=== PATIENT | male | born 1955 | race Caucasian/White ===

== ENCOUNTER 2018-07-25 16:51 | Emergency (ER) | payer BC, SELFPAY ==
[2018-07-25 16:52] VITALS: BP 122/82; PULSE 94; RESP 16; TEMP 37.3; O2SAT 97; BMI 27.3
--- NOTE | 2018-07-25 17:01 | ED.RN ---
PT STATES HE HAS TINGLING DOWN THE AFFECTED LLE. THE LEFT THIGH IS PURPLE AND YELLOW BRUISED, LEFT KNEE IS SWOLLEN BUT NOT RED, PT IS ABLE TO BEND THE KNEE. PT HAS PULSES PRESENT, SENSATION INTACT, CAP REFILL LESS THAN 3 SEC IN THE LLE.
--- NOTE | 2018-07-25 17:09 | US_ITS ---
STUDY: VENOUS DOPPLER ULTRASOUND - LEFT LOWER EXTREMITY REASON FOR EXAM: Male, 62 years old. Swelling TECHNIQUE: Ultrasound evaluation of the deep vein system to include enrique-scale imaging and compression was performed. Enrique-scale imaging and Doppler sonographic evaluation, including duplex spectral analysis and qualitative color flow sonography, was performed. COMPARISON: None. FINDINGS: Common Femoral Vein: Normal compression, spontaneity and augmentation. Normal color Doppler. Common Femoral Vein/Greater Saphenous Junction: Normal compression. Femoral Proximal: Normal compression. Femoral Middle: Normal compression, spontaneity and augmentation. Normal color Doppler. Femoral Distal: Normal compression. Popliteal Vein: Normal compression, spontaneity and augmentation. Normal color Doppler. Posterior Tibial Vein: Normal compression. Peroneal Vein: Normal compression. US/Venous Duplex Imag/Limited/Uni IMPRESSION: Normal venous Doppler ultrasound of the lower extremity. Electronically Signed: Rudy Gupta, at 17:54 EDT Tel , Service support ,
--- NOTE | 2018-07-25 17:09 | ED.VISSUMM ---
- ER Visit Summary Date of Service: 07/25/18 Chief Complaint: Left lower extremity pain History of Present Illness: The patient is a 62 M presenting with left lower extremity pain. Patient states on he was cutting down a tree and a piece of wood came down and hit him in the left thigh. He has been able to ambulate since. He has bruising to the left lateral thigh. He complains of increasing swelling lower thigh today. He has a remote history of blood clots. He is not on anticoagulants. He denies chest pain or shortness of breath. Physical Examination: Vitals are stable. Patient is afebrile. Alert no acute distress. HEENT exam is unremarkable. Neck is supple. Lungs are clear and equal bilaterally. Heart is regular rate and rhythm. Extremities left lateral thigh ecchymosis and hematoma. Compartments soft. Active full range of motion. No erythema or warmth. Normal distal pulses. No calf tenderness. Skin is warm and dry. Remainder of exam is unremarkable. Emergency Department Course and Treatment: Left lower extremity venous Doppler shows no evidence of DVT. Left femur x-ray shows no acute process. Patient is advised to ice and elevate. Advised to follow-up with primary care physician. Advised return to ED for worsening complaints. Disposition: Discharge home Impression: Left lower extremity contusion This note was generated with nPicker dictation software. It may contain incorrect words, spelling, and punctuation that were not noted in review of the chart prior to signing ED Disposition - Plan for ED Patient: Instructions: ED Contusion Lower Ext Referrals: Roni Au MD [Primary Care Provider] -
--- NOTE | 2018-07-25 17:10 | RAD_ITS ---
STUDY: X-RAY - LEFT FEMUR REASON FOR STUDY: Male, 62 years old. Pain TECHNIQUE: 4 view(s) of the femur. COMPARISON: None. FINDINGS: Normal visualized femur. Normal visualized soft tissue structure. RAD/Femur Min 2 Views IMPRESSION: Normal x-ray examination of the femur. Electronically Signed: Rudy Gupta, at 17:46 EDT Tel , Service support ,
--- NOTE | 2018-07-25 17:50 | ED.DEP ---
ED Disposition - Plan for ED Patient: Instructions: ED Contusion Lower Ext Referrals: Roni Au MD [Primary Care Provider] -
[2018-07-25 18:00] VITALS: BP 122/87; PULSE 98; RESP 16; O2SAT 97
== END 2018-07-25 17:59 | disposition home or self-care (01) ==
PROVIDERS: Emergency Provider Emergency Medicine; Family Provider Family Medicine; PCP Family Medicine
DX: S70.12XA Contusion of left thigh, initial encounter (principal); W22.8XXA Striking against or struck by other objects, initial encounter; Y93.9 Activity, unspecified; Y92.9 Unspecified place or not applicable; Z86.79 Personal history of other diseases of the circulatory system
CPT/HCPCS: 73552; 93971; 99282

== ENCOUNTER → 2019-05-22 15:26 | Outpatient (CLI) | payer BC, SELFPAY ==
[2019-05-22 15:01] VITALS: BMI 27.3
[2019-05-22 16:54] LABS: Absolute Lymphocyte Count 1.51 X10^3/uL (0.83-4.51); Absolute Neutrophil Count 6.9 X10^3/uL (2.0-7.7); Basophil# 0.04 X10^3/uL; Basophil% 0.4 % (0-1); Eosinophil# 0.04 X10^3/uL; Eosinophils% 0.4 % (0-5); Hematocrit 47.7 % (40-54); Lymphocyte # 1.51 X10^3/ul (4.0); Lymphocyte % 16.4 % (19-41); Mean Corp Hgb Conc 33.5 g/dL (32-36); Mean Corpuscular Hgb 31.3 pg (27.0-32.0); Mean Corpuscular Volume 93.2 fL (80-94); Mean Platelet Vol. 10.1 fl (6.2-12.0); Monocyte# 0.72 X10^3/uL; Monocyte% 7.8 % (0-10); NRBC Flagged by Analyzer 0 % (0-5); Neutrophil # 6.85 X10^3/uL (2.7-7.7); Neutrophil % 74.7 % (47-70); Platelet Count 305 K/mm3 (150-450); RBC Distribution Width CV 12.7 % (11.6-14.6); RBC Distribution Width SD 43.6 fl (35.1-43.9); Red Blood Count 5.12 M/mm3 (4.6-6.2); White Blood Count 9.2 K/mm3 (4.4-11.0)
[2019-05-22 17:28] LABS: AST(SGOT) 20 U/L (15-37); Alanine Aminotransfer ALT/SGPT 38 U/L (16-61); Albumin, Serum 4.1 g/dL (3.2-5.0); Alkaline Phosphatase 103 U/L (45-117); Anion Gap 7 (5-15); BUN 10 mg/dL (7-18); BUN/Creat Ratio 8.9 RATIO (10-20); Calcium,Total 9.5 mg/dL (8.5-10.1); Chloride 101 mmol/L (98-107); Creatinine, Serum 1.12 mg/dL (0.70-1.30); EST Glomerular Filtration Rate 70 mL/min (>60); Est Glom Filt Rate - Afr Amer 85 mL/min (>60); Globulin 4.1 g/dL (2.2-4.2); Glucose 97 mg/dL (74-106); Protein, Total 8.2 g/dL (6.4-8.2); Sodium Level 135 mmol/L (136-145); Thyroid Stim Hormone (TSH) 1.04 uIU/mL (0.358-3.74)
== END ==
PROVIDERS: PCP Internal Medicine; Referring Provider Internal Medicine; Visit Provider Internal Medicine
DX: F32.9 Major depressive disorder, single episode, unspecified (principal); F41.9 Anxiety disorder, unspecified
CPT/HCPCS: 36415; 80053; 84439; 84443; 85025

== ENCOUNTER → 2019-09-10 15:32 | Outpatient (CLI) | payer BC, SELFPAY ==
[2019-09-10 15:15] VITALS: BMI 27.3
[2019-09-10 17:51] LABS: Anion Gap 9 (5-15); BUN 12 mg/dL (7-18); BUN/Creat Ratio 9.9 RATIO (10-20); Calcium,Total 9.2 mg/dL (8.5-10.1); Chloride 103 mmol/L (98-107); Cholesterol 202 mg/dL (200); Creatinine, Serum 1.21 mg/dL (0.70-1.30); EST Glomerular Filtration Rate 64 mL/min (>60); Est Glom Filt Rate - Afr Amer 78 mL/min (>60); Glucose 94 mg/dL (74-106); High Density Lipoprotein 66 mg/dL; Potassium 3.6 mmol/L (3.5-5.1); Sodium Level 139 mmol/L (136-145); Triglycerides 58 mg/dL; Very Low Density Lipoprotein 12 mg/dL (5-40)
== END ==
PROVIDERS: PCP Internal Medicine; Referring Provider Internal Medicine; Visit Provider Internal Medicine
DX: I10 Essential (primary) hypertension (principal)
CPT/HCPCS: 36415; 80048; 80061

== ENCOUNTER 2020-01-18 06:37 | Day surgery (SDC) | payer BC, SELFPAY ==
[2019-12-25 11:46] VITALS: BMI 27.3
[2020-01-07 14:28] VITALS: BMI 27.9
[2020-01-18] VITALS (7 sets, daily range): BP systolic 99–136; BP diastolic 69–94; PULSE 69–86; RESP 16–18; TEMP 36.1–36.7; O2SAT 97–100; BMI 27.0
--- NOTE | 2020-01-18 06:52 | HP.PCM_ITS ---
Problem List (1) Positive colorectal cancer screening using Cologuard test Status: Acute History and Physical Date of Admission: 01/18/20 Intake Visit Reasons: CSCOPE/ POSITIVE COLOGUARD Chief Complaint: C-Scope/Positive Cologuard Paper Stacker Required: No Is patient in pain?: No Allergies Penicillins [PCN] Allergy (Verified 12/25/19 11:45) Rash Medications amlodipine 5 mg tablet See Rx Instructions .ROUTE .COMPLEX #90 tab 06/14/19 [Rx Confirmed 12/25/19] escitalopram oxalate 5 mg tablet See Rx Instructions .ROUTE .COMPLEX #90 tab 06/14/19 [Rx Confirmed 12/25/19] PFSH Medical History (Updated 12/25/19 @ 12:[address] Ede Liu MD) Facial tic (Chronic) Hypertension (Chronic) Anxiety and depression (Chronic) Positive colorectal cancer screening using Cologuard test (Acute) Alcohol abuse (Acute) Hearing problem (Acute) Surgical History (Updated 12/25/19 @ 11:42 by Lillian Camargo) History of nasal surgery (Acute) Family History (Updated 12/25/19 @ 11:43 by Lillian Camargo) Mother Depression Heart disease Hypertension High cholesterol Father Depression Heart disease Grandfather Arthritis Other Hyperlipemia Social History (Updated 12/25/19 @ 12:[address] Ede Liu MD) Smoking Status: Never smoker alcohol intake: current Alcohol type: beer substance use type: does not use what type of physical activity do you participate in: none HPI HPI HPI: JOSELINE MATTHEWS, is a 64 M who presents to the office today for surgical consultation because of a positive Cologuard test. The patient is kindly referred by Dr. Franklin and a written copy of my surgical consult recommendations will return to her. The patient is never previously had a colonoscopy. Had a Cologuard test on November 15, 2019 which was positive. He has no family history of colon polyps or colon cancer. He denies any bright red blood per rectum or melena. 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 There have been some people that have been out with Covid-19 but he does not feel that he has had any exposure. He does occasionally get diarrhea by eating spicy foods. He otherwise enjoys good health. He had a remote history of a crush injury to his right leg which sounds like it caused a small hematoma. He did not require anticoagulation. This does not seem to correlate with a DVT. HPI HPI HPI: JOSELINE MATTHEWS, is a 64 M who presents to the office today for ROS General General: No weight change, appetite, fatigue, colon cancer, breast cancer or weakness HEENT HEENT: No difficulty swallowing, eye injury, eye surgery, swollen glands or hoarseness Endo Endocrine: No thyroid disease, diabetes mellitus, thyroid cancer, Hair loss, heat intolerance or cold intolerance Skin Skin: No rash or changing moles Breast Breast: No left breast lump, right breast lump, nipple discharge, breast pain, abnormal mammogram, abnormal US or breast enlargement Musc Musculoskeletal: No back problems, arthritis, rheumatoid arthritis, gout or joint pain Cardio Cardiovascular: Yes high blood pressure; no murmur, pacemaker, heart disease, atrial fibrillation, heart attack, heart stent, palpitations, shortness of breat with exertion or chest pain Psych Psychiatric: Yes depression; no anxiety or hearing voices Resp Respiratory: No shortness of breath, No sleep apnea, No cough, No COPD, No asthma, No emphysema, No wheezing Gastro Gastrointestinal: No abdominal pain, No nausea or vomiting, No diarrhea, No constipation, No blood in stool, No acid reflux, No hemorrhoids, No ulcers, No gallbladder problem, No black,tarry stools [place] Hematologic: No blood thinners, No blood disorders, No bleeding, No anemia, No blood clots Neuro Neurologic: No system reviewed and no additional complaints, except as docu, No as per HPI, No abnormal walking, No abnormal hearing, No abnormal movements, No abnormal speech, No behavioral changes, No burning sensations, No confusion, No seizure-like activity, No unsteadiness, No dizziness, No localized weakness, No frequent falls, No headache(s), No lack of coordination, No loss of vision, No memory loss, Yes numbness, No other visual disturbances, No radiating pain, No restless legs, No sensory deficit, No fainting, Yes tingling, No tremor(s), No weakness, No other Exam Const General: cooperative, healthy appearing Nutritional Appearance: average body habitus Orientation: alert, awake HENMT Head: normal to inspection Neck Neck: normal visual inspection Chest Chest palpation & inspection: normal inspection of the chest Breast Palpation: No nipple discharge Resp Effort & Inspection: normal respiratory effort Auscultation: clear to auscultation bilaterally Cardio Rate: regular rate Rhythm: regular rhythm Heart Sounds: no murmurs GI Palpation: soft, no hepatosplenomegaly Auscultation: normal bowel sounds Neuro Cognition: normal cognition Extrem General: no calf tenderness Psych Affect: normal affect Assessment & Plan Problems 1. Positive colorectal cancer screening using Cologuard test R19.5 Plan I recommend to the patient a esophagogastroduodenoscopy the possible biopsy and colonoscopy with possible biopsy or polypectomy as indicated. I described the technique, benefit, risk, alternatives. He has had an opportunity to ask and have questions answered. He is aware that the [facility] is reporting a low local incidence of COVID. I appreciate the opportunity of assisting with his surgical care Copy Dr.Oleghe Ede Liu M.D., F.A.C.S. I have re-examined the patient. There are no clinical changes since date of exam. Procedure Criteria Procedure Type: Elective COVID Risk Discussion: The surgeon/proceduralist and patient have discussed in detail the risk of exposure to and/or potential harm posed by the COVID-19 virus with having a surgery/procedure at this time versus the risk of delaying the surgery/procedure. It is not possible to know either the risk of delaying the surgery or procedure or chance of getting an infection with perfect accuracy, but a joint decision was made between the patient and the surgeon/proceduralist to proceed at this time with the scheduled surgery/procedure as indicated on the consent form.
[2020-01-18] MEDS: Lactated Ringers 1,000 ML 100 ML IV ×2 (07:08→07:45)
--- NOTE | 2020-01-18 07:45 | IMM_PTH ---
PATIENT: JOSELINE MATTHEWS LOC: [facility] U#:[id number] AGE/SX: 64/M ROOM: RE01/18/[address]: Dr. Ede Liu MD : 1955 BED: DIS: 01/18/2020 SPEC #: [id number] RECD: 01/18/20 14:00 STATUS: CHAVA REIzabel #: [id number] MARCELO: 01/18/20 07:[address]: Ede Liu DEPT: IMMUNOHISTOCHEMISTRY RECD BY: Isabel Pedersen ENTERED: 01/18/20 14:01 SP TYPE: IMMUNO OTHR DR: Dr. Mary Franklin MD Tissues: A - Stomach, NOS Procedures: H Pylori (initial) PHYSICIAN & INSTITUTION [place] [id number] SPECIMEN INFORMATION: Tissue Source: A - Antral biopsy Clinical Info: Positive Cologuard Specimen Number: [id number] CPT code: 75223 METHODOLOGY: Deparaffinized sections of prefer/formalin-fixed tissue or PAP/DQ stained slides are incubated with monoclonal/polyclonal antibodies/oligonucleotide probes. Localization is made via biotin free immunoperoxidase method. Appropriate controls are performed and reacted as expected. Results on target cell population are indicated in the following table: RESULTS: ANTIBODY / CLONE RESULT Block A H Pylori (polyclonal) negative These tests were developed and their performance characteristics determined by [facility]. They may not have been cleared or approved by the U.S. Food and Drug Administration. The FDA has determined that such clearance or approval is not necessary. INTERPRETATION: A. Antral biopsy: Negative for Helicobacter pylori organisms. SJ:john 01/21/20
--- NOTE | 2020-01-18 07:45 | COLBX_PTH ---
PATIENT: JOSELINE MATTHEWS LOC: EN U#:[id number] AGE/SX: 64/M ROOM: RE01/18/[address]: Dr. Ede Liu MD : 1955 BED: DIS: 01/18/2020 SPEC #: [id number] RECD: 01/18/20 11:40 STATUS: CHAVA CAPRI #: [id number] MARCELO: 01/18/20 07:[address]: Ede Liu DEPT: SURGICAL PATHOLOGY RECD BY: Priscila Plummer ENTERED: 01/18/20 12:28 SP TYPE: COLON BX OTHR DR: Dr. Mary Franklin MD Tissues: A - Gastric mucous membrane B - Esophageal mucous membrane C - Cecum, NOS D - COLON BIOPSY E - Transverse colon F - Transverse colon Procedures: Surgery Specimen Level IV HEADER OPERATION: [place] [place] DIAGNOSIS: Positive Cologuard TISSUE SUBMITTED: A - Antral biopsy for H. pylori and pathology, B - Distal esophagus biopsy, C - Cecal polyp, D - Hepatic flexure polyp, E - Proximal transverse polyp, F - Mid transverse polyp MICROSCOPIC DIAGNOSIS A. Antral biopsy: Mild gastritis. See microscopic description and comment. B. Distal esophagus, biopsy: Fragments of squamous mucosa with mild chronic inflammation. C. Cecal polyp, biopsy: Fragments of tubular adenoma. D. Hepatic flexure polyp, biopsy: Fragments of hyperplastic polyp. E. Proximal transverse colon polyp, biopsy: Fragments of tubular adenoma. F. Mid transverse colon polyp, biopsy: Fragments of tubular adenoma. SJ:john 01/21/20 COMMENT A. The results of immunohistochemistry for Helicobacter pylori will be reported separately ([id number]). MICROSCOPIC DESCRIPTION Slides are reviewed. A. The specimen shows fragments of gastric mucosa with chronic inflammatory cell infiltrates in the lamina propria consisting of lymphocytes and plasma cells, consistent with mild chronic gastritis. GROSS DESCRIPTION A - Received in fixative is one container labeled with the patient's name and designated antrum biopsy. The specimen consists of one irregular fragment of light guo soft tissue that measures 0.5 x 0.3 x 0.1 cm. The specimen is totally submitted in one cassette. B - Received in fixative is one container labeled with the patient's name and designated distal esophageal biopsy. The specimen consists of multiple irregular fragments of light guo soft tissue that in aggregate measure 1 x 0.6 x 0.1 cm. The specimen is totally submitted in one cassette. C - Received in fixative is one container labeled with the patient's name and designated cecum polyp. The specimen consists of multiple irregular fragments of light guo soft tissue that in aggregate measure 1 x 0.5 x 0.1 cm. The specimen is totally submitted in one cassette. D - Received in fixative is one container labeled with the patient's name and designated hepatic flexure polyp. The specimen consists of multiple irregular fragments of light guo soft tissue that in aggregate measure 1.5 x 0.5 x 0.1 cm. The specimen is totally submitted in one cassette. E - Received in fixative is one container labeled with the patient's name and designated proximal transverse polyp. The specimen consists of multiple irregular fragments of light guo soft tissue that in aggregate measure 1 x 0.5 x 0.3 cm. The specimen is totally submitted in one cassette. F - Received in fixative is one container labeled with the patient's name and designated mid transverse polyp. The specimen consists of multiple irregular fragments of light guo soft tissue that in aggregate measure 1 x 0.5 x 0.1 cm. The specimen is totally submitted in one cassette. / SJ:rg 01/18/20 TC:1 CPT: 98748 x6
--- NOTE | 2020-01-18 08:40 | OP.CCLET_ITS ---
01/18/2020 Mary Franklin MD [address] [place] [address] [place] [address] Re : Upper GI endoscopy procedure for Howard Fall Dear Dr. Franklin This procedure was performed on Saturday, January 18, 2020. My impressions and recommendations are as follows: Impressions : - Z-line irregular, 40 cm from the incisors. - LA Grade A reflux esophagitis. Biopsied. - Medium-sized hiatal hernia. - Erythematous mucosa in the antrum. Biopsied. - Normal examined duodenum. Recommendations : - Discharge patient to home. - Resume previous diet. - Continue present medications. - Use Prilosec (omeprazole) 40 mg PO daily. My findings are described in the full procedure note, which is enclosed. If I can be of further assistance, please feel free to contact me at Doctor phone number(s): Work: . Sincerely, Ede Liu MD 01/18/2020 8:39:56 AM This report has been signed electronically.
--- NOTE | 2020-01-18 08:40 | OP.EGD_ITS ---
Patient Name: Howard Fall Procedure Date: 01/18/2020 7:57 AM Date of : 1955 Age: 64 Procedure: Upper GI endoscopy Indications: Cologuard positive Providers: Ede Liu MD Referring MD: Mary Franklin MD Medicines: See the Anesthesia note for documentation of the administered medications Complications: No immediate complications. Procedure: Pre-Anesthesia Assessment: - Prior to the procedure, a History and Physical was performed, and patient medications and allergies were reviewed. The patient's tolerance of previous anesthesia was also reviewed. The risks and benefits of the procedure and the sedation options and risks were discussed with the patient. All questions were answered, and informed consent was obtained. Prior Anticoagulants: The patient has taken no previous anticoagulant or antiplatelet agents. ASA Grade Assessment: II - A patient with mild systemic disease. After reviewing the risks and benefits, the patient was deemed in satisfactory condition to undergo the procedure. After obtaining informed consent, the endoscope was passed under direct vision. Throughout the procedure, the patient's blood pressure, pulse, and oxygen saturations were monitored continuously. The gastroscope was introduced through the mouth, and advanced to the second part of duodenum. The upper GI endoscopy was accomplished without difficulty. The patient tolerated the procedure well. Scope In: 8:02:09 AM Scope Out: 8:08:31 AM Total Procedure Duration Time 0 hours 6 minutes 22 seconds Findings: The Z-line was irregular and was found 40 cm from the incisors. LA Grade A (one or more mucosal breaks less than 5 mm, not extending between tops of 2 mucosal folds) esophagitis with no bleeding was found 40 cm from the incisors. Biopsies were taken with a cold forceps for histology. A medium-sized hiatal hernia was present. Diffuse mildly erythematous mucosa without bleeding was found in the gastric antrum. Biopsies were taken with a cold forceps for histology. The examined duodenum was normal. Impression: - Z-line irregular, 40 cm from the incisors. - LA Grade A reflux esophagitis. Biopsied. - Medium-sized hiatal hernia. - Erythematous mucosa in the antrum. Biopsied. - Normal examined duodenum. Recommendation: - Discharge patient to home. - Resume previous diet. - Continue present medications. - Use Prilosec (omeprazole) 40 mg PO daily. Procedure Code(s): --- Professional --- 45984, Esophagogastroduodenoscopy, flexible, transoral; with biopsy, single or multiple Diagnosis Code(s): --- Professional --- K22.8, Other specified diseases of esophagus K21.0, Gastro-esophageal reflux disease with esophagitis K44.9, Diaphragmatic hernia without obstruction or gangrene K31.89, Other diseases of stomach and duodenum CPT copyright 2017 [employer]. All rights reserved. The codes documented in this report are preliminary and upon senior principal process engineer review may be revised to meet current compliance requirements. Ede Liu MD 01/18/2020 8:39:56 AM This report has been signed electronically. Number of Addenda: 0 Note Initiated On: 01/18/2020 7:57 AM
--- NOTE | 2020-01-18 08:45 | OP.COLON_ITS ---
Patient Name: Howard Fall Procedure Date: 01/18/2020 8:09 AM Date of : 1955 Age: 64 Procedure: Colonoscopy Indications: Positive Cologuard test Providers: Ede Liu MD Referring MD: Mary Franklin MD Medicines: See the Anesthesia note for documentation of the administered medications Patient Profile: Last Colonoscopy: none. The patient's first colonoscopy is today. Complications: No immediate complications. Procedure: Pre-Anesthesia Assessment: - Prior to the procedure, a History and Physical was performed, and patient medications and allergies were reviewed. The patient's tolerance of previous anesthesia was also reviewed. The risks and benefits of the procedure and the sedation options and risks were discussed with the patient. All questions were answered, and informed consent was obtained. Prior Anticoagulants: The patient has taken no previous anticoagulant or antiplatelet agents. ASA Grade Assessment: II - A patient with mild systemic disease. After reviewing the risks and benefits, the patient was deemed in satisfactory condition to undergo the procedure. After I obtained informed consent, the scope was passed under direct vision. Throughout the procedure, the patient's blood pressure, pulse, and oxygen saturations were monitored continuously. The colonoscope was introduced through the anus and advanced to the cecum, identified by appendiceal orifice and ileocecal valve. The colonoscopy was performed with moderate difficulty due to a redundant colon. The patient tolerated the procedure well. The quality of the bowel preparation was good. The ileocecal valve and the appendiceal orifice were photographed. Scope In: 8:11:11 AM Scope Withdrawal Time 0 hours 19 minutes 46 seconds Scope Out: 8:34:57 AM Total Procedure Duration Time 0 hours 23 minutes 46 seconds Findings: Hemorrhoids were found on perianal exam. The digital rectal exam was normal. Pertinent negatives include normal prostate (size, shape, and consistency). A 6 mm polyp was found in the cecum. The polyp was sessile. The polyp was removed with a hot snare. Resection and retrieval were complete. A 15 mm polyp was found in the hepatic flexure. The polyp was sessile. The polyp was removed with a cold biopsy forceps. Polyp resection was incomplete. A 6 mm polyp was found in the proximal transverse colon. The polyp was sessile. The polyp was removed with a hot snare. Resection and retrieval were complete. A 12 mm polyp was found in the mid transverse colon. The polyp was sessile. The polyp was removed with a hot snare. Resection and retrieval were complete. Multiple diverticula were found in the sigmoid colon and descending colon. Impression: - Hemorrhoids found on perianal exam. - One 6 mm polyp in the cecum, removed with a hot snare. Resected and retrieved. - One 15 mm polyp at the hepatic flexure, removed with a cold biopsy forceps. Incomplete resection. - One 6 mm polyp in the proximal transverse colon, removed with a hot snare. Resected and retrieved. - One 12 mm polyp in the mid transverse colon, removed with a hot snare. Resected and retrieved. - Diverticulosis in the sigmoid colon and in the descending colon. Recommendation: - Discharge patient to home. - Resume previous diet. - Continue present medications. - Repeat colonoscopy in 1 year for surveillance. The hepatic flexure polyp was difficult to completely remove, attempted retroflex view as well. Will plan short term one year followup - Telephone my office for pathology results in 1 week. Procedure Code(s): --- Professional --- 02041, Colonoscopy, flexible; with removal of tumor(s), polyp(s), or other lesion(s) by snare technique 35530, 59, Colonoscopy, flexible; with biopsy, single or multiple Diagnosis Code(s): --- Professional --- K64.9, Unspecified hemorrhoids D12.0, Benign neoplasm of cecum D12.3, Benign neoplasm of transverse colon (hepatic flexure or splenic flexure) R19.5, Other fecal abnormalities K57.30, Diverticulosis of large intestine without perforation or abscess without bleeding CPT copyright 2017 [employer]. All rights reserved. The codes documented in this report are preliminary and upon manufacturing management associate review may be revised to meet current compliance requirements. Ede Liu MD 01/18/2020 8:44:56 AM This report has been signed electronically. Number of Addenda: 0 Note Initiated On: 01/18/2020 8:09 AM
--- NOTE | 2020-01-18 08:45 | OP.CCLET_ITS ---
01/18/2020 Mary Franklin MD [address] [place] [address] [place] [address] Re : Colonoscopy procedure for Howard Fall Dear Dr. Franklin This procedure was performed on Saturday, January 18, 2020. My impressions and recommendations are as follows: Impressions : - Hemorrhoids found on perianal exam. - One 6 mm polyp in the cecum, removed with a hot snare. Resected and retrieved. - One 15 mm polyp at the hepatic flexure, removed with a cold biopsy forceps. Incomplete resection. - One 6 mm polyp in the proximal transverse colon, removed with a hot snare. Resected and retrieved. - One 12 mm polyp in the mid transverse colon, removed with a hot snare. Resected and retrieved. - Diverticulosis in the sigmoid colon and in the descending colon. Recommendations : - Discharge patient to home. - Resume previous diet. - Continue present medications. - Repeat colonoscopy in 1 year for surveillance. The hepatic flexure polyp was difficult to completely remove, attempted retroflex view as well. Will plan short term one year followup - Telephone my office for pathology results in 1 week. My findings are described in the full procedure note, which is enclosed. If I can be of further assistance, please feel free to contact me at Doctor phone number(s): Work: . Sincerely, Ede Liu MD 01/18/2020 8:44:56 AM This report has been signed electronically.
== END 2020-01-18 09:54 | disposition home or self-care (01) ==
LOC: EN 06:37 → AC 06:38
PROVIDERS: Anesthesiology; PCP Internal Medicine; Referring Provider Internal Medicine; Visit Provider Surgery
PROC: 0DJD8ZZ Inspection of Lower Intestinal Tract, Via Natural or Artificial Opening Endoscopic (ICD-10-PCS; CPT 45378; principal; 2020-01-18 07:40)
DX: Z12.11 Encounter for screening for malignant neoplasm of colon (principal); Z20.828 Contact with and (suspected) exposure to other viral communicable diseases; D12.0 Benign neoplasm of cecum; D12.3 Benign neoplasm of transverse colon; K57.30 Diverticulosis of large intestine without perforation or abscess without bleeding; K44.9 Diaphragmatic hernia without obstruction or gangrene; K64.9 Unspecified hemorrhoids; K21.00 Gastro-esophageal reflux disease with esophagitis, without bleeding; K22.8 Other specified diseases of esophagus; K31.89 Other diseases of stomach and duodenum; I10 Essential (primary) hypertension; F32.9 Major depressive disorder, single episode, unspecified; F41.9 Anxiety disorder, unspecified; Z79.899 Other long term (current) drug therapy; Z86.718 Personal history of other venous thrombosis and embolism
CPT/HCPCS: 43239; 45380; 45385; 87635; 88305; 88342; C9803; J7120; J2405; U0003

== ENCOUNTER → 2020-05-12 10:40 | Outpatient (CLI) | payer BC, SELFPAY ==
[2020-05-12 12:52] LABS: Absolute Neutrophil Count 4.6 X10^3/uL (2.0-7.7); Basophil# 0.03 X10^3/uL; Basophil% 0.5 % (0-1); Eosinophil# 0.03 X10^3/uL; Eosinophils% 0.5 % (0-5); Hematocrit 43.8 % (40-54); Hemoglobin 14.4 g/dL (13.0-16.5); Lymphocyte % 18.8 % (19-41); Mean Corp Hgb Conc 32.9 g/dL (32-36); Mean Corpuscular Hgb 30.1 pg (27.0-32.0); Mean Corpuscular Volume 91.6 fL (80-94); Mean Platelet Vol. 10.4 fl (6.2-12.0); Monocyte# 0.49 X10^3/uL; Monocyte% 7.7 % (0-10); NRBC Flagged by Analyzer 0 % (0-5); Neutrophil # 4.58 X10^3/uL (2.7-7.7); Neutrophil % 71.9 % (47-70); Platelet Count 445 K/mm3 (150-450); RBC Distribution Width CV 12.4 % (11.6-14.6); Red Blood Count 4.78 M/mm3 (4.6-6.2); White Blood Count 6.4 K/mm3 (4.4-11.0)
[2020-05-12 13:35] LABS: ALB/GLOB Ratio 0.6 RATIO (0.9-2.4); AST(SGOT) 46 U/L (15-37); Alanine Aminotransfer ALT/SGPT 61 U/L (16-61); Albumin, Serum 2.9 g/dL (3.2-5.0); Alkaline Phosphatase 106 U/L (45-117); Anion Gap 6 (5-15); BUN 11 mg/dL (7-18); BUN/Creat Ratio 11.1 RATIO (10-20); Calcium,Total 9.1 mg/dL (8.5-10.1); Chloride 103 mmol/L (98-107); Creatinine, Serum 0.99 mg/dL (0.70-1.30); EST Glomerular Filtration Rate 80 mL/min (>60); Est Glom Filt Rate - Afr Amer 97 mL/min (>60); Globulin 4.9 g/dL (2.2-4.2); Glucose 91 mg/dL (74-106); PSA,Total - Annual Screen 0.72 ng/mL (0.00-4.00); Potassium 3.6 mmol/L (3.5-5.1); Protein, Total 7.8 g/dL (6.4-8.2); Sodium Level 135 mmol/L (136-145); T4 Free Direct 1.12 ng/dL (0.76-1.46); Thyroid Stim Hormone (TSH) 0.73 uIU/mL (0.358-3.74)
== END ==
PROVIDERS: PCP Internal Medicine; Visit Provider Internal Medicine
DX: Z00.00 Encounter for general adult medical examination without abnormal findings (principal); I10 Essential (primary) hypertension; F32.9 Major depressive disorder, single episode, unspecified; F41.9 Anxiety disorder, unspecified
CPT/HCPCS: 36415; 80053; 84153; 84439; 84443; 85025; G0103

== ENCOUNTER → 2020-09-11 07:29 | Day surgery (SDC) | payer BC, SELFPAY ==
[2020-08-25 13:52] VITALS: BMI 26.6
[2020-09-11 07:51] VITALS: BP 157/88; PULSE 92; RESP 16; TEMP 36.8; O2SAT 99
== END ==
PROVIDERS: PCP Internal Medicine; Referring Provider Surgery; Visit Provider Surgery
PROC: F00ZJWZ Instrumental Swallowing and Oral Function Assessment using Swallowing Equipment (ICD-10-PCS; CPT 43235; principal; 2020-09-11 07:55)
DX: K21.9 Gastro-esophageal reflux disease without esophagitis (principal)
CPT/HCPCS: 91010

== ENCOUNTER 2020-09-30 10:54 | Observation (INO) | payer BC, SELFPAY ==
[2020-08-25 13:52] VITALS: BMI 26.6
--- NOTE | 2020-09-24 15:26 | EKG12_ITS ---
Test Reason : PREOP Blood Pressure : / mmHG Vent. Rate : 075 BPM Atrial Rate : 075 BPM P-R Int : 162 ms QRS Dur : 100 ms QT Int : 376 ms P-R-T Axes : 054 -03 041 degrees QTc Int : 419 ms Normal sinus rhythm Normal ECG Confirmed by ANKIT ROMO, CORINNA ([id number]), brands editor JHONY DEL RIO ([id number]) on 09/29/2020 1:25:06 PM Referred By: Ede Liu Confirmed By:CORINNA PHAM MD
[2020-09-24 17:29] LABS: Hematocrit 43.6 % (40-54); Hemoglobin 14.7 g/dL (13.0-16.5); Mean Corp Hgb Conc 33.7 g/dL (32-36); Mean Corpuscular Hgb 30.1 pg (27.0-32.0); Mean Corpuscular Volume 89.2 fL (80-94); Mean Platelet Vol. 10.3 fl (6.2-12.0); Platelet Count 298 K/mm3 (150-450); RBC Distribution Width SD 42.3 fl (35.1-43.9); Red Blood Count 4.89 M/mm3 (4.6-6.2); White Blood Count 6.8 K/mm3 (4.4-11.0)
[2020-09-24 18:07] LABS: Anion Gap 8 (5-15); BUN 17 mg/dL (7-18); BUN/Creat Ratio 16.3 RATIO (10-20); Calcium,Total 8.9 mg/dL (8.5-10.1); Chloride 105 mmol/L (98-107); Creatinine, Serum 1.04 mg/dL (0.70-1.30); EST Glomerular Filtration Rate 76 mL/min (>60); Est Glom Filt Rate - Afr Amer 92 mL/min (>60); Glucose 83 mg/dL (74-106); Potassium 3.6 mmol/L (3.5-5.1); Sodium Level 139 mmol/L (136-145)
[2020-09-30] VITALS (13 sets, daily range): BP systolic 98–133; BP diastolic 64–89; PULSE 70–83; RESP 16–18; TEMP 36.1–37; O2SAT 93–97; BMI 28.3; BMI 28.1
--- NOTE | 2020-09-30 05:38 | PCM.HP.BLA ---
History and Physical Date of Admission: 09/30/20 Intake Visit Reasons: discuss HH repair Chief Complaint: Discuss Hiatal hernia repair Precision Instrument And Tool Maker Required: No Is patient in pain?: No Allergies Penicillins [PCN] Allergy (Verified 08/25/20 13:55) Rash Medications amlodipine 10 mg tablet 10 mg PO QHS #90 tab 04/10/20 [Rx Confirmed 08/25/20] escitalopram oxalate 10 mg tablet 10 mg PO QHS #90 tab 05/12/20 [Rx Confirmed 08/25/20] omeprazole 40 mg capsule,delayed release See Rx Instructions .ROUTE .COMPLEX #90 capsule 07/07/20 [Rx Confirmed 08/25/20] [facility] Medical History (Updated 08/25/20 @ 14:[address] Ede Liu MD) Alcohol abuse Anxiety and depression Facial tic Hearing problem Hiatal hernia Hypertension Positive colorectal cancer screening using Cologuard test Surgical History History of esophagogastroduodenoscopy (EGD) History of nasal surgery Hx of colonoscopy Family History Mother Depression Heart disease Hypertension High cholesterol Father Depression Heart disease Grandfather Arthritis Other Hyperlipemia Social History (Updated 08/25/20 @ 13:41 by Holly Suarez) Smoking Status: Never smoker alcohol intake: current Alcohol type: beer substance use type: does not use caffeine: Yes what type of physical activity do you participate in: none HPI HPI HPI: HOWARD MATTHEWS, is a 64 M who presents to the office today for ongoing surgical consultation regarding hiatal hernia and gastroesophageal reflux disease. The patient was initially referred to me because of Cologuard positive stool. On clinical exam he also had reflux symptoms. And so on January 21, 2020 I did combined esophagogastroduodenoscopy with biopsy and colonoscopy. The colonoscopy demonstrated 3 tubular adenomas and 1 hyperplastic polyp. One of the polyps in the ascending colon was very difficult to visualize and so follow-up colonoscopy at 1 year was recommended. The patient thought that he could just continue medication and he has been on omeprazole 40 mg daily. However when he ran out of his prescription literally in 2 days he had significant reflux symptoms with burping reflux heartburn. He states that he sleeps on 2 pillows nightly. He has not had esophageal manometry. As noted below H. pylori was negative on his upper endoscopy. Mild gastritis and reflux esophagitis with H. pylori negative. The patient was encouraged to initiate acid suppression and prescription was provided. For colon polyps all benign. Because of the difficulty in accessing one of the polyps and assuring complete removal recommendation for follow-up colonoscopy 1 year. Ede Liu M.D., F.A.C.S. Patient Name: Howard Matthews Procedure Date: 01/18/2020 7:57 AM Date of : 1955 Age: 64 Procedure: Upper GI endoscopy Indications: Cologuard positive Providers: Ede Liu MD Referring MD: Mary Franklin MD Medicines: See the Anesthesia note for documentation of the administered medications Complications: No immediate complications. Procedure: Pre-Anesthesia Assessment: - Prior to the procedure, a History and Physical was performed, and patient medications and allergies were reviewed. The patient's tolerance of previous anesthesia was also reviewed. The risks and benefits of the procedure and the sedation options and risks were discussed with the patient. All questions were answered, and informed consent was obtained. Prior Anticoagulants: The patient has taken no previous anticoagulant or antiplatelet agents. ASA Grade Assessment: II - A patient with mild systemic disease. After reviewing the risks and benefits, the patient was deemed in satisfactory condition to undergo the procedure. After obtaining informed consent, the endoscope was passed under direct vision. Throughout the procedure, the patient's blood pressure, pulse, and oxygen saturations were monitored continuously. The gastroscope was introduced through the mouth, and advanced to the second part of duodenum. The upper GI endoscopy was accomplished without difficulty. The patient tolerated the procedure well. Scope In: 8:02:09 AM Scope Out: 8:08:31 AM Total Procedure Duration Time 0 hours 6 minutes 22 seconds Findings: The Z-line was irregular and was found 40 cm from the incisors. LA Grade A (one or more mucosal breaks less than 5 mm, not extending between tops of 2 mucosal folds) esophagitis with no bleeding was found 40 cm from the incisors. Biopsies were taken with a cold forceps for histology. A medium-sized hiatal hernia was present. Diffuse mildly erythematous mucosa without bleeding was found in the gastric antrum. Biopsies were taken with a cold forceps for histology. The examined duodenum was normal. Impression: - Z-line irregular, 40 cm from the incisors. - LA Grade A reflux esophagitis. Biopsied. - Medium-sized hiatal hernia. - Erythematous mucosa in the antrum. Biopsied. - Normal examined duodenum. Recommendation: - Discharge patient to home. - Resume previous diet. - Continue present medications. - Use Prilosec (omeprazole) 40 mg PO daily. Procedure Code(s): --- Professional --- 76798, Esophagogastroduodenoscopy, flexible, transoral; with biopsy, single or multiple Diagnosis Code(s): --- Professional --- K22.8, Other specified diseases of esophagus K21.0, Gastro-esophageal reflux disease with esophagitis K44.9, Diaphragmatic hernia without obstruction or gangrene K31.89, Other diseases of stomach and duodenum CPT copyright 2017 [employer]. All rights reserved. The codes documented in this report are preliminary and upon hat block bench hand review may be revised to meet current compliance requirements. Ede Liu MD 01/18/2020 8:39:56 AM This report has been signed electronically. Number of Addenda: 0 Note Initiated On: 01/18/2020 7:57 AM ROS General General: No weight change, appetite, fatigue, colon cancer, breast cancer or weakness HEENT HEENT: No difficulty swallowing, eye injury, eye surgery, swollen glands or hoarseness Endo Endocrine: No thyroid disease, diabetes mellitus, thyroid cancer, Hair loss, heat intolerance or cold intolerance Skin Skin: No rash or changing moles Musc Musculoskeletal: No back problems, arthritis, rheumatoid arthritis, gout or joint pain Cardio Cardiovascular: Yes high blood pressure; No murmur, pacemaker, heart disease, atrial fibrillation, heart attack, heart stent, palpitations, shortness of breat with exertion or chest pain Psych Psychiatric: Yes depression; No anxiety or hearing voices Resp Respiratory: No shortness of breath, No sleep apnea, No cough, No COPD, No asthma, No emphysema and No wheezing Gastro Gastrointestinal: No abdominal pain, No nausea or vomiting, No diarrhea, No constipation, No blood in stool, No acid reflux, No hemorrhoids, No ulcers, No gallbladder problem and No black,tarry stools [place] Hematologic: No blood thinners, No blood disorders, No bleeding, No anemia and No blood clots Neuro Neurologic: No weakness Exam Const General: cooperative, healthy appearing, comfortable and no acute distress Nutritional Appearance: average body habitus Orientation: alert and awake [facility] Head: normal to inspection Eyes General: appearance normal, both eyes and all related structures Resp Effort & Inspection: normal respiratory effort Auscultation: clear to auscultation bilaterally Cardio Rate: regular rate Rhythm: regular rhythm GI Palpation: soft and no hepatosplenomegaly Auscultation: normal bowel sounds Musc Cervical Spine: normal cervical lordosis Skin General: no rashes or lesions noted Neuro General: patient alert and patient awake Gait: normal gait Extrem General: no calf tenderness bilaterally Psych Thought Process: normal Judgment: judgment good COVID (Procedure Consent) Procedure Criteria Procedure Criteria: Yes Elective The surgeon/proceduralist and patient have discussed in detail the risk of exposure to and/or potential harm posed by the COVID-19 virus with having a surgery/procedure at this time versus the risk of delaying the surgery/procedure. It is not possible to know either the risk of delaying the surgery or procedure or chance of getting an infection with perfect accuracy, but a joint decision was made between the patient and the surgeon/proceduralist to proceed at this time with the scheduled surgery/procedure as indicated on the consent form. Assessment and Plan Assessment and Plan (1) Hiatal hernia: Status: Acute (2) GERD with esophagitis: Status: Acute Qualifiers: Esophagitis bleeding: without hemorrhage Qualified Code(s): K21.00 - Gastro-esophageal reflux disease with esophagitis, without bleeding Plan Details Additional Comments: 64-year-old gentleman with gastroesophageal reflux disease biopsy-proven esophagitis. He has hiatal hernia. H. pylori was negative. He is medication dependent currently on omeprazole therapy 40 mg daily. He does do conservative measures like sleeping with head elevated on 2 pillows. I recommended the patient esophageal manometry. I have then additionally fully discussed with him surgical treatment options. We discussed technique benefit risk complications alternatives of a laparoscopic repair of his hiatal hernia with either partial wrap or complete wrap. He is aware of the technique, benefit, risk, alternatives. He was provided written descriptive information regarding post surgical activity and diet instructions. He has had an opportunity to ask and have questions answered. He is aware there are no guarantees of success. The patient is interested in pursuing a surgical option so that he is not lifelong medication dependent. He may require a lower acid suppressive dosing like famotidine once he is more recovered postoperatively because of his biopsy-proven gastritis. At this point he is interested in pursuing. We will schedule him for the manometry. Patient additionally states that he is interested enough that he would like to be tentatively given an operative date. We will provide him with results of his manometry over the phone and barring any additional questions or problems we will proceed with scheduling and surgical intervention. Further office appointment can be at patient discretion. I appreciate the ongoing opportunity of assisting with the surgical care At this point I am anticipating a laparoscopic toupet procedure pending the results of the esophageal manometry On September 11, 2020 at the [facility] the patient had esophageal manometry performed. This demonstrated 10 normal swallows and normal peristalsis. With his direction we will proceed with definitive surgical treatment of his reflux disease and at this point anticipate proceeding with a laparoscopic Toupet procedure. He is aware of the technique, benefit, risk, alternatives. He has had an opportunity to ask and have questions answered. We will proceed as noted. Copy: Dr. Noemi Liu M.D., F.A.C.S.
[2020-09-30] MEDS: Lactated Ringers 1,000 ML 100 ML IV ×3 (06:25→10:31)
--- NOTE | 2020-09-30 07:12 | PCM.DC ---
Discharge Instructions Diet Discharge Diet: - Activity Discharge Activity: May Not Drive (for 3-5 days or while taking narcotic pain medicine.) May shower in (days): 1 Lifting Restrictions: 10 pounds Dressing / Incision Call your doctor if your incision/area has: Continuous Slow Oozing, Sudden Increased Bleeding, Increased Pain/ Swelling, Increased Redness and Foul Smelling Discharge Call your doctor if you observe: Fever of 101 or Higher Suture Line Care: Avoid Pulling/Pushing and Avoid Pinching/Bending Additional Dressing/Incision Instructions:: Change or remove dressing in 3 days. Leave steri-strips in place for 1 week. Follow Up Care Please Follow Up With: Ede Liu MD When: Call [phone] to make an appointment to be seen in about 10 days. Please stop by the office tomorrow to pick pack worker detailed postoperative instructions regarding laparoscopic Davide fundoplication and Toupet procedures Liquid diet as I described and then subsequently as per the written instructions Test Results: Test results from this visit will be discussed in further detail at your follow-up appointment, if applicable. Discharge Plan Admission Admit Date/Time: 09/30/20 10:54 Attending Provider: Ede Liu Primary Care Provider: Mary Franklin Discharge Orders/Prescriptions Prescriptions: No Action omeprazole 40 mg capsule,delayed release(DR/EC) 40 mg PO DAILY Qty: 90 RF: 0 escitalopram oxalate 10 mg tablet 10 mg PO DAILY RF: 0 amlodipine 10 mg tablet 10 mg PO DAILY RF: 0 Disposition Discharge Orders: Discharge Patient (Routine); Ordered 09/30/20 Ordered By: Dr. Ede Liu
--- NOTE | 2020-09-30 07:30 | HERN_PTH ---
PATIENT: JOSELINE MATTHEWS LOC: MS3 U#:[id number] AGE/SX: 64/M ROOM: CA305 RE09/30/[address]: Dr. Ede Liu MD : 1955 BED: 1 DIS: 09/30/2020 SPEC #: [id number] RECD: 09/30/20 11:40 STATUS: CHAVA FAROOQ #: [id number] MARCELO: 09/30/20 07:[address]: Ede Liu DEPT: SURGICAL PATHOLOGY RECD BY: Priscila Plummer ENTERED: 09/30/20 11:51 SP TYPE: Hernia OTHR DR: Dr. Mary Franklin MD Tissues: HERNIA Procedures: Surgery Specimen Level II HEADER OPERATION: Laparoscopic hiatal hernia repair with Toupet wrap PRE-OP DIAGNOSIS: Hiatal hernia, GERD, esophagitis TISSUE SUBMITTED: Hernia sac MICROSCOPIC DIAGNOSIS Hernia sac: Fragments of fibroadipose tissue, clinically hiatal hernia. MIRA:john 10/01/2020 MICROSCOPIC DESCRIPTION Slides are reviewed. GROSS DESCRIPTION Received in fixative is one container labeled with the patient's name and designated hernia sac. The specimen consists of three irregular fragments of pink-yellow fibrofatty tissue that in aggregate measure 5 x 2.5 x 1 cm. Serial sections do not reveal mass lesions. Open Hearth Furnace Operator Helper sections are submitted in one cassette. / AM:john 09/30/20 TC:5 CPT: 89442
--- NOTE | 2020-09-30 10:15 | OP.PCM_ITS ---
Problems Associated Problem List Diagnoses (1) Hiatal hernia: (2) GERD with esophagitis: Report of Operation Date of Procedure: 09/30/20 Pre-Operative Diagnosis: iNTRACTABLE GASTROESOPHAGEAL REFLUX DISEASE WITH HIATAL HERNIA Post-Operative Diagnosis: Same Surgery/Procedure Performed:: Laparoscopic repair of hiatal hernia with a laparoscopic toupet procedure, esophagogastroduodenoscopy dictated through provation Description of Surgical Findings:: Timeout and informed consent was obtained. 64-year-old gentleman was taken to the operating room placed upon the table underwent general tracheal intubation esthesia he was placed in a low lithotomy position with a beanbag and careful buttock support. Clindamycin 900 g were given intravenously. The abdomen sterilely prepped and draped. Ioban draping was used for silicate draping. 0.5% Marcaine was used as a local anesthetic. Throughout the procedure a total of 30 cc was used. Skin sites were. No size. In the right superior periumbilical area using a 5 mm Visiport technology clean access was gained to the abdomen. The abdomen was insufflated with CO2 to a pressure of 10 mmHg pressure. A 5 mm trocar was placed in the epigastrium to allow for placement of a Shweta retractor. 2 additional 5 mm ports were placed in the left subcostal area. A 10 mm port was placed on the left superior periumbilical epigastric area. The patient was placed in reverse Trendelenburg position. Under laparoscopic control the Shweta retractor was placed elevate the left lobe of the liver. Inspection revealed that there was a moderately large hiatal hernia with stomach and into the adhesions within the mediastinum. Careful anteriorly is harmonic scalpel and blunt dissection was used to identify the hernia sac the reflection of the right and left merlene. Dissection performed circumferentially toes to identify the sac and to assist with reduction of the sac. I worked from the right aspect of the merlene to the left. I then transected where indicated short gastrics to allow for mobilization of the fundus of the stomach and to better identify the left merlene. This allowed me to get retrograde access to the esophagus and further free up intra-mediastinal stomach and reduce it back to the abdomen. I was able to gain an opening posterior to the esophagus and placed 1/2 inch Aries drain to further assist with manipulation of the GE junction. I fully dissected free the posterior gastric fat pad so as to cleanly identify the right and left merlene and great care was taken to keep them peritonealized. I then worked at least 6 to 8 cm within the mediastinum circumferentially to completely free the esophagus allow for reduction. Great care was taken posteriorly to elevate the posterior vagus nerve. Having now completely mobilized the stomach back with the abdomen I repaired the merlene with 4 sutures of 0 Nurolon these were pledgeted sutures they were secured with extrapleural knot tying and were reinforced with intracorporeal knot tying. Then placed a 46 Greek bougie demonstrating very nice approximation of the crura. I then withdrew the bougie and wrapped the fundus of the stomach posteriorly. I secured the posterior aspect the fundus to the repaired crura with 0 Ethibond. I then performed a 270 degree wrap using a 2-0 Ethibond and securing the esophagus to the epiphrenic ligament to the wrap portion of the stomach in a running fashion approximately 2-1/2 to 3 cm. Performed the same thing on the fundus side of the stomach carefully approximating that again stomach to epiphrenic ligament to esophagus and then a running line approximately 3 cm long. I felt that I had a very nice 270 degree wrap. I then performed a esophagogastroduodenoscopy demonstrating the wrap to be intact and seemingly repaired hiatal hernia. Excess fluid nerves aspirated free. Blood loss is been minimal. The 10 mm trocar site was closed with a GraNee needle in a [id number] suture of 0 Vicryl. The abdomen was allowed to deflate of the CO2. Skin edges approximated opted for Monocryl subdermal stitches. It is of note that prior to removing trochars I did use the 0.5% Marcaine in attempt to do a left subcostal tap block. Use the rest of the local then to anesthetize the skin sites locally. Sponge and instrument and needle counts were reported the surgeon for correct. Specimen includes portions of the hernia sac which were excised. Drains none. Blood loss minimal. The patient was taken to the recovery area in satisfactory condition without apparent complication Ede Liu M.D., F.A.C.S. Surgeon: Ede Liu Type of Anesthesia: General and Local Anesthesiologist: Grayson Ernst
--- NOTE | 2020-09-30 10:35 | OP.EGD_ITS ---
Patient Name: Howard Fall Procedure Date: 09/30/2020 9:51 AM Date of : 1955 Age: 64 Procedure: Upper GI endoscopy Indications: Intraoperative evaluation of fundoplication formation during anatomic reconstruction foregut surgery Providers: Ede Liu MD Medicines: See the Anesthesia note for documentation of the administered medications Complications: No immediate complications. Procedure: Pre-Anesthesia Assessment: - Prior to the procedure, a History and Physical was performed, and patient medications and allergies were reviewed. The patient's tolerance of previous anesthesia was also reviewed. The risks and benefits of the procedure and the sedation options and risks were discussed with the patient. All questions were answered, and informed consent was obtained. Prior Anticoagulants: The patient has taken no previous anticoagulant or antiplatelet agents. ASA Grade Assessment: II - A patient with mild systemic disease. After reviewing the risks and benefits, the patient was deemed in satisfactory condition to undergo the procedure. After obtaining informed consent, the endoscope was passed under direct vision. Throughout the procedure, the patient's blood pressure, pulse, and oxygen saturations were monitored continuously. The Endoscope was introduced through the and advanced to the. The gastroscope was introduced through the mouth, and advanced to the duodenal bulb. The upper GI endoscopy was accomplished without difficulty. The patient tolerated the procedure well. Scope In: 9:59:41 AM Scope Out: 10:01:51 AM Total Procedure Duration Time 0 hours 2 minutes 10 seconds Findings: The examined esophagus was normal. The Z-line was regular and was found 40 cm from the incisors. Evidence of a Toupet fundoplication was found in the gastric fundus. The wrap appeared intact. The examined duodenum was normal. Impression: - Normal esophagus. - Z-line regular, 40 cm from the incisors. - A Toupet fundoplication was found. The wrap appears intact. - Normal examined duodenum. - No specimens collected. Recommendation: - Observe patient in same day observation unit for ongoing care. - Resume previous diet. - Continue present medications. - Return to my office in 2 weeks. Procedure Code(s): --- Professional --- 01743, Esophagogastroduodenoscopy, flexible, transoral; diagnostic, including collection of specimen(s) by brushing or washing, when performed (separate procedure) Diagnosis Code(s): --- Professional --- Z98.890, Other specified postprocedural states CPT copyright 2017 [employer]. All rights reserved. The codes documented in this report are preliminary and upon red hat engineer review may be revised to meet current compliance requirements. Ede Liu MD 09/30/2020 10:35:17 AM This report has been signed electronically. Number of Addenda: 0 Note Initiated On: 09/30/2020 9:51 AM
[2020-09-30] MEDS: Lactated Ringers 1,000 ML 50 ML IV (13:15)
[2020-09-30] MEDS: Acetaminophen 325 MG Tablet 650 MG PO (14:48)
--- NOTE | 2020-09-30 18:19 | PCM.PN.SRG ---
Subjective Subjective Patient has no real pain. He is tolerating clear liquids without any difficulty. He is voiding well. He has no specific concerns. Objective Data Objective Data Vital Signs: Vital Signs Temp Pulse Resp BP Pulse Ox 97.8 F 76 18 126/86 H 97 09/30/20 16:53 09/30/20 16:53 09/30/20 16:53 09/30/20 16:53 09/30/20 16:53 Oxygen Delivery Method Room Air Weight: 185 lb 11.831 oz Body Mass Index (BMI) 28.1 Intake & Output: Intake and Output for Last 24 Hours 09/28/20 09/29/20 09/30/20 23:59 23:59 23:59 Intake Total 2979.33 / 2979.33 Balance 2979.33 / 2979.33 Lab / Micro Data Result Diagrams: 09/24/20 16:05 09/24/20 16:05 Assessment & Plan Assessment/Plan (1) GERD with esophagitis: QUALIFIERS: Esophagitis bleeding: without hemorrhage Qualified Code(s): K21.00 - Gastro-esophageal reflux disease with esophagitis, without bleeding (2) Hiatal hernia: PLAN: Absolutely excellent postoperative progress. Plan discharge to home. Liquid diet described. Anticipate ongoing good results. Ede Liu M.D., F.A.C.S.
== END 2020-09-30 19:05 | disposition home or self-care (01) ==
LOC: SDC 12:00 → MS3 12:00
PROVIDERS: Admitting Provider Surgery; PCP Internal Medicine; Referring Provider Surgery; Visit Provider Surgery
PROC: (CPT 43325; principal; 2020-09-30 07:10)
DX: K44.9 Diaphragmatic hernia without obstruction or gangrene (principal); I10 Essential (primary) hypertension; F10.10 Alcohol abuse, uncomplicated; F41.9 Anxiety disorder, unspecified; F32.9 Major depressive disorder, single episode, unspecified; Z79.899 Other long term (current) drug therapy; K21.00 Gastro-esophageal reflux disease with esophagitis, without bleeding
CPT/HCPCS: 00790; 43281; 36415; 80048; 85027; 88302; 93005; 99218; 99251; J7120; G0378; G0379; G0463; J2405

== ENCOUNTER 2021-01-12 15:30 | Outpatient (RCR) | payer BC, SELFPAY ==
--- NOTE | 2020-12-24 13:52 | HP.OTEVAL_ITS ---
Patient's Visit Information JOSELINE MATTHEWS is a 65 year old M, referred to Occupational Therapy by ABHI Langley, with a diagnosis of right 5th metacarpal fx. Date of Evaluation: Occupational Therapist: Kat Augustine, OTJeane/Ree, CHT - Subjective This 65 year old male was seen for OT eval with dx of right 5th metacarpal fx. DOI was 10/28/20. pt states he was falling down stairs and went to reach for the rail and as he was sliding down trying to hold onto the rail he caught his RF and LF on the hook that holds the railing on. Pt went to get x ray 2 weeks later. pt was casted for about 6-8 weeks- pt arrives to session in need of increasing his ROM and increase the strength of his right hand. 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 with ADLs and IADLs by d/c Goal:: pt will demo full tight composite fist to hold small objects/coins ind. by d.c Goal:: pt will report pain no greater than 1/10 with use of right hand with ADLs and IADLs by d.c - Rehabilitation General Assessment: pt arrives 8 weeks after injury with limited ROM and strength of right hand- this limits pt with his ind. with ADLs and IADls. pt would benefit from skilled OT services 1-2x week for 3-4 weeks. Today therapist ed, pt on tendon glides and place hand hold exercies to gain ROM. 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 custom orthosis for protection at work. pt demo understanding and agree to POC. Rehabilitation Potential: Excellent - Anticipated Interventions A/AAROM/PROM, Strengthening, Triggerpoint Release, Modalities, Orthoses, Joint Protection/Energy Conservation, Education re Diagnosis, Home Program - Visit Plan Frequency: 1-2x /Week Duration: 2-4 Weeks TEXT: Thank you for the opportunity to evaluate your patient. For Medicare and Medicare HMO plans, please review the plan of care and approve it. It will need to be FAXED BACK to us at [phone] for Medicare purposes. Please let me know if there are questions or concerns regarding this plan of care. Physician Signature: Date:
--- NOTE | 2021-04-09 09:40 | HP.OT.NRP ---
JOSELINE Graham MATTHEWS was seen in my office for initial evaluation on 12/24/20. The following Plan of Care was established for this patient: Initial Frequency: 1-2x /Week Initial Duration: 2-4 Weeks Plan: cont with PRE. Strengthening program Anticipated Interventions: A/AAROM/PROM, Strengthening, Triggerpoint Release, Modalities, Orthoses, Joint Protection/Energy Conservation, Education re Diagnosis, Home Program This patient was last seen in our office 01/12/21. Pertinent comments regarding their Occupational therapy will appear below: pt was seen in OT for 6 visits following a 5th metacarpal fx. pt made full gains with his ROM and strength was returning- pt has not scheduled further apts. and due to time lapse in services pt d/c. At this point I will be discontinuing this patient from occupational therapy. I would be happy to see this patient again in the future if found appropriate by the physician. Thank you! Kat Augustine, OTR/L, CHT
== END 2021-01-12 19:00 | disposition home or self-care (01) ==
LOC: OT 15:30
PROVIDERS: PCP Internal Medicine
DX: S62.306D Unspecified fracture of fifth metacarpal bone, right hand, subsequent encounter for fracture with routine healing (principal)
CPT/HCPCS: 97110; 97166; 97530

== ENCOUNTER → 2021-01-27 15:45 | Outpatient (CLI) | payer BC, SELFPAY ==
[2021-01-27 17:43] LABS: Hemoglobin A1c 5.4 % (3.8-5.6)
[2021-01-27 17:44] LABS: Vitamin B12 542 pg/mL (211-911)
== END ==
PROVIDERS: PCP Internal Medicine; Referring Provider Internal Medicine; Visit Provider Internal Medicine
DX: G62.9 Polyneuropathy, unspecified (principal)
CPT/HCPCS: 36415; 82607; 83036

== ENCOUNTER 2021-03-10 06:41 | Day surgery (SDC) | payer BC, SELFPAY ==
[2021-03-10] MEDS: Lactated Ringers 1,000 ML 15 ML IV (06:55)
[2021-03-10 07:14] VITALS: BP 135/82; PULSE 85; RESP 16; TEMP 37.2; O2SAT 96; BMI 27.4
--- NOTE | 2021-03-10 07:35 | HP.PCM_ITS ---
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 Is patient in pain?: No Allergies Penicillins [PCN] Allergy (Verified 02/17/21 13:43) Rash Medications amlodipine 10 mg PO DAILY 09/30/20 [History Confirmed 02/17/21] escitalopram oxalate 10 mg PO DAILY 09/30/20 [History Confirmed 02/17/21] omeprazole 40 mg capsule,delayed release 40 mg PO DAILY #90 capsule 10/01/20 [Rx Confirmed 02/17/21] sildenafil 50 mg tablet 50 mg PO DAILY PRN #30 tab 12/16/20 [Rx Confirmed 02/17/21] PFSH Medical History Alcohol abuse Anxiety and depression Arthritis Back pain DVT (deep venous thrombosis) Erectile dysfunction Facial tic Fracture of fifth metacarpal bone of right hand Gastric reflux Hearing problem Hiatal hernia History of edema History of hiatal hernia Hypersomnolence Hypertension Leg cramps Loss of hearing Neuropathy Non-smoker Positive colorectal cancer screening using Cologuard test Right hand fracture Wears glasses Surgical History History of esophagogastroduodenoscopy (EGD) History of nasal surgery Hx of colonoscopy Status post laparoscopic Davide fundoplication Family History Mother Depression Heart disease Hypertension High cholesterol Father Depression Heart disease Grandfather Arthritis Other Hyperlipemia Social History Smoking Status: Never smoker alcohol intake: current Alcohol type: beer substance use type: does not use caffeine: Yes what type of physical activity do you participate in: none HPI HPI HPI: JOSELINE MATTHEWS, is a 65 M who presents to the office today for surgical followup. H/O lap tomichelle 09/30/20. This was for HH with reflux escophagitis but no petit's. Cscope on 01/21/2020 showed 3 tubular adenomas and 1 hyperplastic polyp. One of the polyps in the ascending colon was very difficult to visualize so a repeat cscope was recommended at one year. The patient is very pleased with his reflux procedure. He claims that it is absolutely stopped his reflux and that he is able to swallow easily. He is able to eat spicy foods without difficulty. He has been able to come off his medication. He denies any bright red blood per rectum or melena. No abdominal pain. His place of employment however is running very busy. Because of COVID-19 there have been an employee leg. Those remaining are having to pull extra hours and shifts. He is finding it very fatiguing. ROS General General: Yes weight change; No appetite, fatigue, colon cancer, breast cancer or weakness HEENT HEENT: No difficulty swallowing, eye injury, eye surgery, swollen glands or hoarseness Endo Endocrine: No thyroid disease, diabetes mellitus, thyroid cancer, Hair loss, heat intolerance or cold intolerance Skin Skin: No rash or changing moles Musc Musculoskeletal: No back problems, arthritis, rheumatoid arthritis, gout or joint pain Cardio Cardiovascular: Yes high blood pressure; No murmur, pacemaker, heart disease, atrial fibrillation, heart attack, heart stent, palpitations, shortness of breat with exertion or chest pain Psych Psychiatric: Yes depression and anxiety; No hearing voices Resp Respiratory: No shortness of breath, Yes sleep apnea, No cough, No COPD, No asthma, No emphysema and No wheezing Gastro Gastrointestinal: No abdominal pain, No nausea or vomiting, No diarrhea, No constipation, No blood in stool, No acid reflux, No hemorrhoids, No ulcers, No gallbladder problem and No black,tarry stools [place] Hematologic: No blood thinners, No blood disorders, No bleeding, No anemia and No blood clots Neuro Neurologic: No system reviewed and no additional complaints, except as documented, No as per HPI, No abnormal gait, No abnormal hearing, No abnormal movements, No abnormal speech, No behavioral changes, No burning sensations, No confusion, No convulsions, No disequilibrium, No dizziness, No localized weakness, No frequent falls, No headache(s), No lack of coordination, No loss of vision, No memory loss, No numbness, No other visual disturbances, No radicular pain, No restless legs, No sensory deficit, No syncope, Yes tingling, No tremor(s), No weakness and No other Exam Const General: cooperative, comfortable and no acute distress Nutritional Appearance: average body habitus Orientation: alert and awake [facility] Head: normal to inspection Eyes General: appearance normal, both eyes and all related structures Chest Chest palpation & inspection: normal inspection of the chest Resp Effort & Inspection: normal respiratory effort Auscultation: clear to auscultation bilaterally Cardio Rate: regular rate Rhythm: regular rhythm GI Palpation: soft and no hepatosplenomegaly Musc Cervical Spine: normal cervical lordosis Skin General: no rashes or lesions noted Extrem General: no calf tenderness Assessment and Plan Assessment and Plan (1) Personal history of colonic polyps: Status: Acute Plan - Dr. Ede Liu MD: 65-year-old gentleman. He has a personal history of colon polyps with a colonoscopy January 2020 multiple polyps resected from the right colon with one in the ascending: That had a very difficult approach. I recommended to the patient a follow-up colonoscopy at 1 year particularly for keen evaluation of that ascending colon again. As a sideline he is very pleased with the results of his laparoscopic toupet procedure that I performed for him September 2020. I pr opose for him a colonoscopy with possible biopsy or polypectomy as indicated. He is aware of the technique, benefit, risk of alternatives. He has had an opportunity to ask and have questions answered. We will schedule procedure at his discretion. Copy: Dr. Mary Liu M.D., F.A.C.S. I have re-examined the patient. There are no clinical changes since date of exam.
--- NOTE | 2021-03-10 07:45 | COLBX_PTH ---
PATIENT: JOSELINE MATTHEWS LOC: EN U#:[id number] AGE/SX: 65/M ROOM: RE03/10/[address]: Dr. Ede Liu MD : 1955 BED: DIS: 03/10/2021 SPEC #: [id number] RECD: 03/10/21 11:33 STATUS: CHAVA CAPRI #: [id number] MARCELO: 03/10/21 07:[address]: Ede Liu DEPT: SURGICAL PATHOLOGY RECD BY: Corazon Hui ENTERED: 03/10/21 13:01 SP TYPE: COLON BX OTHR DR: Dr. Mary Franklin MD Tissues: A - Cecum, NOS B - Ascending colon C - Ascending colon D - COLON BIOPSY E - Transverse colon F - Transverse colon G - Transverse colon Procedures: Surgery Specimen Level IV HEADER OPERATION: Colonoscopy (MAC) PRE-OP DIAGNOSIS: History of colonic polyps TISSUE SUBMITTED: A ? Cecum polyp biopsy, B ? Ascending colon polyp, C - Ascending colon polyp #2, D ? Hepatic flexure polyp, E ? Proximal transverse polyp, F ? Proximal transverse #2 biopsy, G ? Mid transverse polyp MICROSCOPIC DIAGNOSIS A. Cecal polyp, biopsy: Fragments of serrated adenoma. B. Ascending colon polyp, biopsy: Tubular adenoma. C. Ascending colon polyp #2, biopsy: Cauterized hyperplastic polyp. D. Colonic polyp at hepatic flexure, biopsy: Consistent with serrated adenoma. E. Proximal transverse colon polyp, biopsy: Consistent with serrated adenoma. F. Proximal transverse colon polyp #2, biopsy: Fragments of serrated adenoma. G. Mid transverse colon polyp, biopsy: Fragments of serrated adenoma. AM:john 03/11/2021 MICROSCOPIC DESCRIPTION Slides are reviewed. GROSS DESCRIPTION A - Received in fixative is one container labeled with the patient's name and designated cecal polyp biopsy. The specimen consists of multiple irregular fragments of light guo soft tissue that in aggregate measure 0.7 x 0.5 x 0.1 cm. The specimen is totally submitted in one cassette. B - Received in fixative is one container labeled with the patient's name and designated ascending colon polyp. The specimen consists of one irregular fragment of light guo soft tissue that measures 0.7 x 0.5 x 0.1 cm. The specimen is totally submitted in one cassette. C - Received in fixative is one container labeled with the patient's name and designated ascending colon polyp #2. The specimen consists of multiple irregular fragments of light guo soft tissue that in aggregate measure 0.5 x 0.3 x 0.1 cm. The specimen is totally submitted in one cassette. D - Received in fixative is one container labeled with the patient's name and designated hepatic flexure polyp. The specimen consists of multiple irregular fragments of light guo soft tissue that in aggregate measure 1 x 0.5 x 0.1 cm. The specimen is totally submitted in one cassette. E - Received in fixative is one container labeled with the patient's name and designated proximal transverse polyp. The specimen consists of multiple irregular fragments of light guo soft tissue that in aggregate measure 0.3 x 0.2 x 0.1 cm. The specimen is totally submitted in one cassette. F - Received in fixative is one container labeled with the patient's name and designated proximal transverse biopsy. The specimen consists of multiple irregular fragments of light guo soft tissue that in aggregate measure 2 x 1 x 0.1 cm. The specimen is totally submitted in one cassette. G - Received in fixative is one container labeled with the patient's name and designated mid transverse polyp. The specimen consists of multiple irregular fragments of light guo soft tissue that in aggregate measure 2 x 1 x 0.1 cm. The specimen is totally submitted in one cassette. / AM:john 03/10/21 TC:5 CPT: 14013 x7
[2021-03-10 08:37] VITALS: BP 102/66; BP 135/82; PULSE 54; RESP 12; TEMP 35.9; O2SAT 99
[2021-03-10 08:40] VITALS: BP 135/82; BP 96/70; PULSE 58; RESP 18; O2SAT 98
[2021-03-10 08:44] VITALS: BP 104/76; BP 135/82; PULSE 62; RESP 18; O2SAT 99
--- NOTE | 2021-03-10 08:45 | OP.COLON_ITS ---
Patient Name: Howard Fall Procedure Date: 03/10/2021 7:35 AM Date of : 1955 Age: 65 Procedure: Colonoscopy Indications: High risk colon cancer surveillance: Personal history of colonic polyps Providers: Ede Liu MD Medicines: See the Anesthesia note for documentation of the administered medications Patient Profile: Last Colonoscopy: 1 year ago. Complications: No immediate complications. Procedure: Pre-Anesthesia Assessment: - Prior to the procedure, a History and Physical was performed, and patient medications and allergies were reviewed. The patient's tolerance of previous anesthesia was also reviewed. The risks and benefits of the procedure and the sedation options and risks were discussed with the patient. All questions were answered, and informed consent was obtained. Prior Anticoagulants: The patient has taken no previous anticoagulant or antiplatelet agents. ASA Grade Assessment: II - A patient with mild systemic disease. After reviewing the risks and benefits, the patient was deemed in satisfactory condition to undergo the procedure. After I obtained informed consent, the scope was passed under direct vision. Throughout the procedure, the patient's blood pressure, pulse, and oxygen saturations were monitored continuously. The pediatric colonoscope was introduced through the anus and advanced to the cecum, identified by appendiceal orifice and ileocecal valve. The colonoscopy was performed with moderate difficulty due to multiple polyps. The patient tolerated the procedure well. The quality of the bowel preparation was adequate to identify polyps. The ileocecal valve and the appendiceal orifice were photographed. Scope In: 7:47:57 AM Scope Withdrawal Time 0 hours 37 minutes 54 seconds Scope Out: 8:32:26 AM Total Procedure Duration Time 0 hours 44 minutes 29 seconds Findings: Hemorrhoids were found on perianal exam. A 6 mm polyp was found in the cecum. The polyp was sessile. The polyp was removed with a cold biopsy forceps. Resection and retrieval were complete. A 7 mm polyp was found in the proximal ascending colon. The polyp was sessile. The polyp was removed with a hot snare. Resection and retrieval were complete. A 6 mm polyp was found in the mid ascending colon. The polyp was sessile. The polyp was removed with a hot snare. Resection and retrieval were complete.Clip was placed to prevent bleeding post intervention. A 9 mm polyp was found in the hepatic flexure. The polyp was sessile. The polyp was removed with a hot snare. Resection and retrieval were complete. A 9 mm polyp was found in the proximal transverse colon. The polyp was sessile. The polyp was removed with a hot snare. Resection and retrieval were complete. A 11 mm polyp was found in the proximal transverse colon. The polyp was sessile. The polyp was removed with a cold biopsy forceps. Resection and retrieval were complete. A 12 mm polyp was found in the mid transverse colon. The polyp was sessile. The polyp was removed with a hot snare. Resection and retrieval were complete. Multiple diverticula were found in the sigmoid colon and descending colon. Impression: - Hemorrhoids found on perianal exam. - One 6 mm polyp in the cecum, removed with a cold biopsy forceps. Resected and retrieved. - One 7 mm polyp in the proximal ascending colon, removed with a hot snare. Resected and retrieved. - One 6 mm polyp in the mid ascending colon, removed with a hot snare. Resected and retrieved. - One 9 mm polyp at the hepatic flexure, removed with a hot snare. Resected and retrieved. - One 9 mm polyp in the proximal transverse colon, removed with a hot snare. Resected and retrieved. - One 11 mm polyp in the proximal transverse colon, removed with a cold biopsy forceps. Resected and retrieved. - One 12 mm polyp in the mid transverse colon, removed with a hot snare. Resected and retrieved. Clip was placed. - Diverticulosis in the sigmoid colon and in the descending colon. Recommendation: - Discharge patient to home. - Resume previous diet. - Continue present medications. - Telephone my office for pathology results in 1 week. - Repeat colonoscopy in 1 year for surveillance. Procedure Code(s): --- Professional --- 21494, Colonoscopy, flexible; with removal of tumor(s), polyp(s), or other lesion(s) by snare technique 53460, 59, Colonoscopy, flexible; with biopsy, single or multiple Diagnosis Code(s): --- Professional --- Z86.010, Personal history of colonic polyps K64.9, Unspecified hemorrhoids D12.0, Benign neoplasm of cecum D12.2, Benign neoplasm of ascending colon D12.3, Benign neoplasm of transverse colon (hepatic flexure or splenic flexure) K57.30, Diverticulosis of large intestine without perforation or abscess without bleeding CPT copyright 2017 [employer] [place] [employer]. All rights reserved. The codes documented in this report are preliminary and upon in flight refueling operator review may be revised to meet current compliance requirements. Ede Liu MD 03/10/2021 8:44:46 AM This report has been signed electronically. Number of Addenda: 0 Note Initiated On: 03/10/2021 7:35 AM
--- NOTE | 2021-03-10 08:46 | OP.CCLET_ITS ---
03/10/2021 Mary Franklin MD [address] [place] [address] [place] [address] Re : Colonoscopy procedure for Howard Fall Dear Dr. Franklin This procedure was performed on Wednesday, March 10, 2021. My impressions and recommendations are as follows: Impressions : - Hemorrhoids found on perianal exam. - One 6 mm polyp in the cecum, removed with a cold biopsy forceps. Resected and retrieved. - One 7 mm polyp in the proximal ascending colon, removed with a hot snare. Resected and retrieved. - One 6 mm polyp in the mid ascending colon, removed with a hot snare. Resected and retrieved. - One 9 mm polyp at the hepatic flexure, removed with a hot snare. Resected and retrieved. - One 9 mm polyp in the proximal transverse colon, removed with a hot snare. Resected and retrieved. - One 11 mm polyp in the proximal transverse colon, removed with a cold biopsy forceps. Resected and retrieved. - One 12 mm polyp in the mid transverse colon, removed with a hot snare. Resected and retrieved. Clip was placed. - Diverticulosis in the sigmoid colon and in the descending colon. Recommendations : - Discharge patient to home. - Resume previous diet. - Continue present medications. - Telephone my office for pathology results in 1 week. - Repeat colonoscopy in 1 year for surveillance. My findings are described in the full procedure note, which is enclosed. If I can be of further assistance, please feel free to contact me at Doctor phone number(s): Work: . Sincerely, Ede Liu MD 03/10/2021 8:44:46 AM This report has been signed electronically.
[2021-03-10 08:50] VITALS: BP 114/79; BP 135/82; PULSE 58; RESP 18; TEMP 36.4; O2SAT 100
[2021-03-10 09:03] VITALS: BP 135/82
== END 2021-03-10 09:21 ==
LOC: EN 06:43 → AC 06:44
PROVIDERS: PCP Internal Medicine; Referring Provider Internal Medicine; Visit Provider Surgery
PROC: 0DJD8ZZ Inspection of Lower Intestinal Tract, Via Natural or Artificial Opening Endoscopic (ICD-10-PCS; CPT 45378; principal; 2021-03-10 07:40)
DX: Z12.11 Encounter for screening for malignant neoplasm of colon (principal); K63.5 Polyp of colon; D12.0 Benign neoplasm of cecum; D12.2 Benign neoplasm of ascending colon; D12.3 Benign neoplasm of transverse colon; K57.30 Diverticulosis of large intestine without perforation or abscess without bleeding; K64.9 Unspecified hemorrhoids; I10 Essential (primary) hypertension; G62.9 Polyneuropathy, unspecified; F32.9 Major depressive disorder, single episode, unspecified; F41.9 Anxiety disorder, unspecified; Z79.899 Other long term (current) drug therapy; Z88.0 Allergy status to penicillin; Z86.010 Personal history of colon polyps; Z86.718 Personal history of other venous thrombosis and embolism
CPT/HCPCS: 45380; 45385; 88305; J7120; J2405

== ENCOUNTER → 2021-10-07 | Outpatient (CLI) | payer BC, SELFPAY ==
[2021-10-07 16:50] LABS: Absolute Lymphocyte Count 2.02 X10^3/uL (0.83-4.51); Absolute Neutrophil Count 4.9 X10^3/uL (2.0-7.7); Basophil# 0.09 X10^3/uL; Basophil% 1.1 % (0-1); Eosinophil# 0.17 X10^3/uL; Eosinophils% 2.1 % (0-5); Hematocrit 45.4 % (40-54); Hemoglobin 15.2 g/dL (13.0-16.5); Lymphocyte # 2.02 X10^3/ul (0.83-4.51); Lymphocyte % 24.8 % (19-41); Mean Corp Hgb Conc 33.5 g/dL (32-36); Mean Corpuscular Hgb 31.8 pg (27.0-32.0); Mean Platelet Vol. 9.9 fl (6.2-12.0); Monocyte# 0.99 X10^3/uL; Monocyte% 12.1 % (0-10); NRBC Flagged by Analyzer 0 % (0-5); Neutrophil # 4.86 X10^3/uL (2.7-7.7); Neutrophil % 59.7 % (47-70); Platelet Count 292 K/mm3 (150-450); RBC Distribution Width CV 12.9 % (11.6-14.6); RBC Distribution Width SD 45.3 fl (35.1-43.9); Red Blood Count 4.78 M/mm3 (4.6-6.2); White Blood Count 8.2 K/mm3 (4.4-11.0)
[2021-10-07 18:30] LABS: ALB/GLOB Ratio 0.9 RATIO (0.9-2.4); AST(SGOT) 31 U/L (15-37); Alanine Aminotransfer ALT/SGPT 36 U/L (16-61); Albumin, Serum 3.9 g/dL (3.2-5.0); Alkaline Phosphatase 126 U/L (45-117); Anion Gap 5 (5-15); BUN 16 mg/dL (7-18); BUN/Creat Ratio 12.7 RATIO (10-20); Calcium,Total 9.4 mg/dL (8.5-10.1); Chloride 105 mmol/L (98-107); Cholesterol 225 mg/dL (200); Creatinine, Serum 1.26 mg/dL (0.70-1.30); EST Glomerular Filtration Rate 61 mL/min (>60); Est Glom Filt Rate - Afr Amer 74 mL/min (>60); Globulin 4.2 g/dL (2.2-4.2); Glucose 84 mg/dL (74-106); High Density Lipoprotein 70 mg/dL; Potassium 4.3 mmol/L (3.5-5.1); Protein, Total 8.1 g/dL (6.4-8.2); Sodium Level 139 mmol/L (136-145); Triglycerides 79 mg/dL; Very Low Density Lipoprotein 16 mg/dL (5-40)
== END | disposition home or self-care (01) ==
LOC: BIMLAB 16:12
PROVIDERS: PCP Internal Medicine; Referring Provider Internal Medicine; Visit Provider Internal Medicine
DX: I10 Essential (primary) hypertension (principal)
CPT/HCPCS: 36415; 80053; 80061; 85025

== ENCOUNTER 2022-03-02 08:21 | Day surgery (SDC) | payer BC, SELFPAY ==
[2022-03-02 09:08] VITALS: BP 134/84; PULSE 85; RESP 18; TEMP 37; O2SAT 97; BMI 28.9
--- NOTE | 2022-03-02 09:08 | HP.PCM_ITS ---
[facility] - General General Date of Service: 03/02/22 Chief Complaint: Personal history of multiple colon polyps [facility] Narrative JOSELINE MATTHEWS, is a 66 M who presents presents for surveillance colonoscopy. Previous colonoscopy was March 10, 2022 and 7 polyps removed at that time. Serrated adenomas. Fortunately he denies any abdominal pain no bright red blood per rectum or melena. He states that the otherwise enjoys stable health [facility] Medical History (Updated 03/01/22 @ 13:08 by Norma Galloway) Alcohol abuse Anxiety and depression Arthritis Back pain DVT (deep venous thrombosis) Erectile dysfunction Facial tic Fracture of fifth metacarpal bone of right hand Hearing problem Hiatal hernia History of edema Hypersomnolence Hypertension Leg cramps Neuropathy Non-smoker Positive colorectal cancer screening using Cologuard test Positive colorectal cancer screening using Cologuard test Right hand fracture Wears glasses Wears hearing aid Home Medications sildenafil 50 mg tablet 50 mg PO DAILY PRN sexual activity #30 tabs 12/16/20 [Rx Last Taken Unknown] amlodipine 10 mg tablet 10 mg PO QHS #90 tabs 04/02/21 [Rx Last Taken Unknown] escitalopram oxalate 10 mg tablet 10 mg PO QHS #60 tabs 05/25/21 [Rx Last Taken Unknown] Allergy/AdvReac Type Severity Reaction Status Date / Time Penicillins [PCN] Allergy Rash Verified 03/02/22 09:08 Family History Mother Depression Heart disease Hypertension High cholesterol Father Depression Heart disease Grandfather Arthritis Other Hyperlipemia Surgical History (Updated 03/01/22 @ 13:08 by Norma Galloway) History of esophagogastroduodenoscopy (EGD) History of nasal surgery History of repair of hiatal hernia Hx of colonoscopy Hx of colonoscopy with polypectomy Status post laparoscopic Davide fundoplication Social History Smoking Status: Never smoker alcohol intake: current Alcohol type: beer substance use type: does not use caffeine: Yes what type of physical activity do you participate in: none ROS Constitutional Constitutional: Reports systems reviewed and no addt'l complaints, except as documented Cardiovascular Cardiovascular: Denies chest pain Respiratory/Chest Respiratory/Chest: Denies shortness of breath at rest Gastrointestinal Gastrointestinal: Denies abdominal pain, change in bowel habits, hematochezia or melena Physical Exam Const alert, oriented x3 and no apparent distress General Appearance: cooperative and comfortable Eyes General Eye: normal appearance of both eyes Neck General: normal visual inspection Chest inspection of chest normal Resp Effort and Inspection: able to speak in complete sentences and symmetric chest movement Auscultation: clear to auscultation bilaterally Cardio regular rate and regular rhythm GI soft to palpation, non-tender and non-distended Extremity no calf tenderness Neuro oriented x3 Psych thought process normal Assessment & Plan Assessment/Plan (1) Personal history of colonic polyps: PLAN: Plan to proceed with a surveillance colonoscopy due to a personal history of multiple colon polyps. He is aware of the technique, benefit, risk, alternatives. He has had an opportunity to ask and have questions answered. He presents via open access today. We will proceed as noted. Ede Liu M.D., F.A.C.S.
[2022-03-02] MEDS: Lactated Ringers 1,000 ML 15 ML IV (09:13)
--- NOTE | 2022-03-02 09:30 | COLBX_PTH ---
PATIENT: JOSELINE MATTHEWS LOC: EN U#:[id number] AGE/SX: 66/M ROOM: RE03/02/[address]: Dr. Ede Liu MD : 1955 BED: DIS: 03/02/2022 SPEC #: [id number] RECD: 03/02/22 10:26 STATUS: CHAVA REIzabel #: [id number] MARCELO: 03/02/22 09:[address]: Ede Liu DEPT: SURGICAL PATHOLOGY RECD BY: Corazon Hui ENTERED: 03/02/22 11:10 SP TYPE: COLON BX OTHR DR: Dr. Mary Franklin MD Tissues: Sigmoid colon biopsy Procedures: Surgery Specimen Level IV HEADER OPERATION: Colonoscopy ? open access (MAC), polypectomy PRE-OP DIAGNOSIS: History of colonic polyps TISSUE SUBMITTED: Proximal sigmoid polyp MICROSCOPIC DIAGNOSIS Proximal sigmoid colon polyp, biopsy: Hyperplastic polyp. AM:john 03/03/2022 MICROSCOPIC DESCRIPTION Slides are reviewed. GROSS DESCRIPTION Received in fixative is one container labeled with the patient's name and designated proximal sigmoid polyp. The specimen consists of multiple irregular fragments of light guo soft tissue that in aggregate measure 1 x 0.2 x 0.1 cm. The specimen is totally submitted in one cassette. / MIRA:john 03/02/2022 TC:5 CPT: 56042
--- NOTE | 2022-03-02 10:08 | OP.COLON_ITS ---
Patient Name: Howard Fall Procedure Date: 03/02/2022 9:35 AM Date of : 1955 Age: 66 Procedure: Colonoscopy Indications: High risk colon cancer surveillance: Personal history of colonic polyps Providers: Ede Liu MD Referring MD: Mary Franklin MD Medicines: See the Anesthesia note for documentation of the administered medications Patient Profile: Last Colonoscopy: 1 year ago. Complications: No immediate complications. Procedure: Pre-Anesthesia Assessment: - Prior to the procedure, a History and Physical was performed, and patient medications and allergies were reviewed. The patient's tolerance of previous anesthesia was also reviewed. The risks and benefits of the procedure and the sedation options and risks were discussed with the patient. All questions were answered, and informed consent was obtained. Prior Anticoagulants: The patient has taken no previous anticoagulant or antiplatelet agents. ASA Grade Assessment: II - A patient with mild systemic disease. After reviewing the risks and benefits, the patient was deemed in satisfactory condition to undergo the procedure. After I obtained informed consent, the scope was passed under direct vision. Throughout the procedure, the patient's blood pressure, pulse, and oxygen saturations were monitored continuously. The adult colonoscope was introduced through the anus and advanced to the cecum, identified by appendiceal orifice and ileocecal valve. The colonoscopy was performed without difficulty. The patient tolerated the procedure well. The quality of the bowel preparation was good. The ileocecal valve and the appendiceal orifice were photographed. Scope In: 9:44:01 AM Scope Withdrawal Time 0 hours 15 minutes 16 seconds Scope Out: 10:03:07 AM Total Procedure Duration Time 0 hours 19 minutes 6 seconds Findings: The digital rectal exam findings include non-thrombosed internal hemorrhoids and internal hemorrhoids (Grade I). Pertinent negatives include normal prostate (size, shape, and consistency). A 4 mm polyp was found in the proximal sigmoid colon. The polyp was sessile. The polyp was removed with a cold snare. Resection and retrieval were complete. Multiple diverticula were found in the sigmoid colon and descending colon. The exam was otherwise without abnormality. Impression: - Non-thrombosed internal hemorrhoids and internal hemorrhoids (Grade I) found on digital rectal exam. - One 4 mm polyp in the proximal sigmoid colon, removed with a cold snare. Resected and retrieved. - Diverticulosis in the sigmoid colon and in the descending colon. - The examination was otherwise normal. Recommendation: - Discharge patient to home. - Resume previous diet. - Continue present medications. - Repeat colonoscopy in 5 years for surveillance. - Telephone my office for pathology results in 1 week. Procedure Code(s): --- Professional --- 54946, Colonoscopy, flexible; with removal of tumor(s), polyp(s), or other lesion(s) by snare technique Diagnosis Code(s): --- Professional --- Z86.010, Personal history of colonic polyps K64.0, First degree hemorrhoids D12.5, Benign neoplasm of sigmoid colon K57.30, Diverticulosis of large intestine without perforation or abscess without bleeding CPT copyright 2017 [employer]. All rights reserved. The codes documented in this report are preliminary and upon wholesale loan processor review may be revised to meet current compliance requirements. Ede Liu MD 03/02/2022 10:08:04 AM This report has been signed electronically. Number of Addenda: 0 Note Initiated On: 03/02/2022 9:35 AM
--- NOTE | 2022-03-02 10:09 | OP.CCLET_ITS ---
03/02/2022 Mary Franklin MD [address] [place] [address] [place] [address] Re : Colonoscopy procedure for Howard Fall Dear Dr. Franklin This procedure was performed on Wednesday, March 02, 2022. My impressions and recommendations are as follows: Impressions : - Non-thrombosed internal hemorrhoids and internal hemorrhoids (Grade I) found on digital rectal exam. - One 4 mm polyp in the proximal sigmoid colon, removed with a cold snare. Resected and retrieved. - Diverticulosis in the sigmoid colon and in the descending colon. - The examination was otherwise normal. Recommendations : - Discharge patient to home. - Resume previous diet. - Continue present medications. - Repeat colonoscopy in 5 years for surveillance. - Telephone my office for pathology results in 1 week. My findings are described in the full procedure note, which is enclosed. If I can be of further assistance, please feel free to contact me at Doctor phone number(s): Work: . Sincerely, Ede Liu MD 03/02/2022 10:08:04 AM This report has been signed electronically.
[2022-03-02 10:10] VITALS: BP 105/73; BP 134/84; PULSE 76; RESP 18; TEMP 36.9; O2SAT 97
[2022-03-02 10:15] VITALS: BP 101/74; BP 134/84; PULSE 76; RESP 16; O2SAT 96
[2022-03-02 10:20] VITALS: BP 134/84; BP 94/65; PULSE 65; RESP 16; O2SAT 96
[2022-03-02 10:25] VITALS: BP 109/75; BP 134/84; PULSE 71; RESP 16; TEMP 36.3; O2SAT 96
== END 2022-03-02 10:58 | disposition home or self-care (01) ==
LOC: EN 08:24 → AC 08:30
PROVIDERS: PCP Internal Medicine; Referring Provider Internal Medicine; Visit Provider Surgery
PROC: 0DJD8ZZ Inspection of Lower Intestinal Tract, Via Natural or Artificial Opening Endoscopic (ICD-10-PCS; CPT 45378; principal; 2022-03-02 09:25)
DX: Z12.11 Encounter for screening for malignant neoplasm of colon (principal); K57.30 Diverticulosis of large intestine without perforation or abscess without bleeding; K63.5 Polyp of colon; K64.0 First degree hemorrhoids; I10 Essential (primary) hypertension; F32.A Depression, unspecified; F41.9 Anxiety disorder, unspecified; Z86.010 Personal history of colon polyps; Z79.899 Other long term (current) drug therapy; Z86.718 Personal history of other venous thrombosis and embolism
CPT/HCPCS: 45385; 88305; J7120; J2405

== ENCOUNTER 2022-05-24 18:10 | Observation (INO) | payer BC, SELFPAY ==
[2022-05-24] VITALS (7 sets, daily range): BP systolic 124–148; BP diastolic 76–91; PULSE 84–89; RESP 16–25; TEMP 36.7; O2SAT 96–98; BMI 31.3
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
--- NOTE | 2022-05-24 18:25 | EKG12_ITS ---
Test Reason : DYSRHYTHMIA Blood Pressure : / mmHG Vent. Rate : 079 BPM Atrial Rate : 079 BPM P-R Int : 164 ms QRS Dur : 102 ms QT Int : 380 ms P-R-T Axes : 060 -40 049 degrees QTc Int : 435 ms Normal sinus rhythm Left axis deviation Low voltage QRS (Limb Leads) Abnormal ECG Confirmed by ANKIT ROMO, CORINNA ([id number]), metropolitan editor JHONY DEL RIO ([id number]) on 05/26/2022 10:12:41 AM Referred By: ANDRÉS Confirmed By:CORINNA PHAM MD
[2022-05-24] MEDS: 0.9% Normal Saline 1,000 ML 150 ML IV (18:31)
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
[2022-05-24 18:57] LABS: Absolute Lymphocyte Count 1.54 X10^3/uL (0.83-4.51); Basophil# 0.07 X10^3/uL; Basophil% 0.7 % (0-1); Eosinophil# 0.09 X10^3/uL; Eosinophils% 0.8 % (0-5); Hematocrit 47.1 % (40-54); Lymphocyte # 1.54 X10^3/ul (0.83-4.51); Lymphocyte % 14.3 % (19-41); Mean Corpuscular Hgb 32.3 pg (27.0-32.0); Mean Corpuscular Volume 95.2 fL (80-94); Mean Platelet Vol. 10.3 fl (6.2-12.0); Monocyte# 0.95 X10^3/uL; Monocyte% 8.8 % (0-10); NRBC Flagged by Analyzer 0 % (0-5); Neutrophil # 8.03 X10^3/uL (2.7-7.7); Neutrophil % 74.7 % (47-70); Platelet Count 315 K/mm3 (150-450); RBC Distribution Width SD 45.7 fl (35.1-43.9); Red Blood Count 4.95 M/mm3 (4.6-6.2); White Blood Count 10.8 K/mm3 (4.4-11.0)
[2022-05-24 19:22] LABS: AST(SGOT) 37 U/L (15-37); Alanine Aminotransfer ALT/SGPT 52 U/L (16-61); Albumin, Serum 4.1 g/dL (3.2-5.0); Alkaline Phosphatase 127 U/L (45-117); Anion Gap 10 (5-15); BUN 13 mg/dL (7-18); BUN/Creat Ratio 11.4 RATIO (10-20); Bilirubin, Direct 0.14 mg/dL (0.00-0.30); Calcium,Total 9.3 mg/dL (8.5-10.1); Chloride 96 mmol/L (98-107); Creatinine, Serum 1.14 mg/dL (0.70-1.30); EST Glomerular Filtration Rate 68 mL/min (>60); Est Glom Filt Rate - Afr Amer 83 mL/min (>60); Estimated Creatinine Clearance 61.67 ml/min; Globulin 4.2 g/dL (2.2-4.2); Glucose 86 mg/dL (74-106); International Normalized Ratio 1.1; Potassium 3.4 mmol/L (3.5-5.1); Protein, Total 8.3 g/dL (6.4-8.2); Prothrombin Time (Protime)PT. 13.7 SECONDS (11.7-14.9); Sodium Level 132 mmol/L (136-145)
[2022-05-24 19:23] LABS: Partial Thromboplast Time 26.9 Seconds (24.1-36.2)
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
[2022-05-24 23:12] LABS: Magnesium 2.6 mg/dL (1.6-2.6); Phosphorus 3.2 mg/dL (2.5-4.9)
[2022-05-25] VITALS (7 sets, daily range): BP systolic 129–152; BP diastolic 77–91; PULSE 75–95; RESP 16–20; TEMP 36.5–36.8; O2SAT 93–99; BMI 29.9
--- NOTE | 2022-05-25 00:27 | CDU_ITS ---
Reason For Study: syncope Rt. Velocities/BP Lt. Velocities/BP Prox CCA 88.1/18.2 cm/sec. Prox CCA 122.9/26.1 cm/sec. Mid CCA 92.9/22.0 cm/sec. Mid CCA 110.9/21.2 cm/sec. Dist CCA 81.5/24.8 cm/sec. Dist CCA 88.8/21.2 cm/sec. Prox ICA 55.1/13.5 cm/sec. Prox ICA 41.0/13.5 cm/sec. Mid ICA 40.7/13.9 cm/sec. Mid ICA 67.4/25.6 cm/sec. Dist ICA 64.9/24.2 cm/sec. Dist ICA 71.8/25.6 cm/sec. Rt. ICA/CCA = .7. Lt. ICA/CCA = .6. Prox ECA 74.9/14.5 cm/sec. Prox ECA 110.9/20.0 cm/sec. Rt. Vert. 28.9/6.9 cm/sec. Lt. Vert. 44.3/13.5 cm/sec. Right Extracranial There is intimal thickening but no significant atherosclerotic plaque noted in the right common carotid artery. There is intimal thickening but no significant atherosclerotic plaque noted in the right internal carotid artery. There is intimal thickening but no significant atherosclerotic plaque noted in the right external carotid artery. Antegrade flow is noted in the right vertebral artery. Left Extracranial There is intimal thickening but no significant atherosclerotic plaque noted in the left common carotid artery. There is intimal thickening but no significant atherosclerotic plaque noted in the left internal carotid artery. There is intimal thickening but no significant atherosclerotic plaque noted in the left external carotid artery. Antegrade flow is noted in the left vertebral artery. Procedure Carotid Duplex 81532. This is a Carotid Duplex examination using B-mode, color flow and specral Doppler. The exam was diagnostic. Exam performed portable in patient room. VL/Carotid Duplex Ultrasound Interpretation Summary Intimal thickening at the proximal right internal carotid artery with less than 50% stenosis Less than 50% stenosis right external carotid artery Intimal thickening at the proximal left internal carotid artery with less than 50% stenosis Less than 50% stenosis left external carotid artery Patent and antegrade vertebral arteries bilaterally Ordering Physician: Jenny Granado Performed By: Adama Meza RVT
--- NOTE | 2022-05-25 00:27 | ECHOCS_ITS ---
Reason For Study: Syncope Procedure This was a 2D Doppler, Color Flow transthoracic echocardiogram. The study was technically difficult. Contrast injection was performed. Exam performed portable in patient room. Left Ventricle Normal LV size. Left ventricular systolic function is normal. The estimated ejection fraction is 60 %. No evidence for diastolic dysfunction. No regional wall motion abnormalities noted. Right Ventricle Normal RV size. Normal systolic function. Atria Normal left atrium. Normal right atrium. No doppler evidence for ASD. Mitral Valve There is no mitral annular calcification. Normal mitral valve. Trivial mitral valve insufficiency. Tricuspid Valve Normal tricuspid valve. Trivial tricuspid valve insufficiency. Right ventricular systolic pressure estimated to be 30 mmHg. Aortic Valve Trisinus/trileaflet aortic valve. Normal aortic valve. Pulmonic Valve The pulmonic valve is not well visualized. Great Vessels Normal sized aortic root. Pericardium/Pleural No pericardial effusion. Medication Diluted definity 3ml given slow IV push to enhance endocardial definition. MMode/2D Measurements & Calculations LVIDd: 4.9 cm IVSd: 1.2 cm Ao root diam: 3.5 cm LVIDs: 3.4 cm LVPWd: 0.77 cm LA dimension: 3.9 cm RVDd: 3.3 cm FS: 29.9 % LAV(MOD-bp): 47.7 ml LA A4 area: 17.6 cm2 RA A4 area: 16.4 cm2 LAV(MOD-bp) Indexed: 23.5 ml/m2 LAV(MOD-sp2): 49.8 ml LAV(MOD-sp4): 44.7 ml Time Measurements MV dec time: 0.27 sec Doppler Measurements & Calculations MV E max giovanny: 57.6 cm/sec Lat Peak E' Giovanny: 13.7 cm/sec Med Peak E' Giovanny: 9.5 cm/sec MV A max giovanny: 87.7 cm/sec E/E' lat: 4.2 E/E' med: 6.0 MV E/A: 0.66 MV V2 max: 91.8 cm/sec MV dec slope: 218.2 cm/sec2 Ao V2 max: 147.3 cm/sec MV max P.4 mmHg Ao max P.7 mmHg MV V2 mean: 49.2 cm/sec Ao V2 mean: 100.8 cm/sec MV mean P.1 mmHg Ao mean P.7 mmHg MV V2 VTI: 24.1 cm Ao V2 VTI: 28.9 cm AV (velocity ratio): 0.81 LV V1 max: 119.3 cm/sec PA V2 max: 114.4 cm/sec TR max giovanny: 259.1 cm/sec LV V1 max P.7 mmHg PA V2 mean: 84.4 cm/sec TR max P.9 mmHg LV V1 mean P.1 mmHg LV V1 mean: 81.1 cm/sec LV V1 VTI: 23.5 cm ECHO/Echo Complete W/ Contrast Interpretation Summary The study was technically difficult. Contrast injection was performed. Left ventricular systolic function is normal. The estimated ejection fraction is 60 %. Trivial mitral valve insufficiency. Trivial tricuspid valve insufficiency. Right ventricular systolic pressure estimated to be 30 mmHg. No evidence for diastolic dysfunction. Ordering Physician: Jenny Granado Referring Physician: Mary Franklin Performed By: Nicholas Dominguez RCS
[2022-05-25] MEDS: 0.9% Normal Saline 1,000 ML 100 ML IV (00:40)
[2022-05-25 00:49] LABS: Amphetamine Urine VISTA NEGATIVE (<1000 ng/mL); Barbiturate Urine VISTA NEGATIVE (< 200 ng/mL); Benzodiazepine Urine VISTA NEGATIVE (< 200 ng/mL); Cocaine Urine VISTA NEGATIVE (< 300 ng/mL); Ecstacy Urine VISTA NEGATIVE (< 500 ng/mL); Methadone Urine VISTA NEGATIVE (< 300 ng/mL); PCP Urine VISTA NEGATIVE (< 25 ng/mL); THC Urine VISTA NEGATIVE (< 50 ng/mL); Vista UDS pH Range 6
[2022-05-25] MEDS: Acetaminophen 325 MG Tablet 650 MG PO ×2 (00:58→14:13)
[2022-05-25 01:28] LABS: Alcohol, Blood (Medical)-Serum < 3.0 mg/dL
--- NOTE | 2022-05-25 02:46 | CPS ---
Talked to patient about PAP therapy. Patient stated that he doesn't use a CPAP machine at home, and doesn't wish to wear one here.
[2022-05-25 02:55] LABS: Troponin-I HS 6 pg/mL (3.0-78.0)
[2022-05-25 04:19] LABS: Absolute Lymphocyte Count 1.37 X10^3/uL (0.83-4.51); Absolute Neutrophil Count 7.2 X10^3/uL (2.0-7.7); Basophil# 0.07 X10^3/uL; Basophil% 0.7 % (0-1); Eosinophil# 0.04 X10^3/uL; Eosinophils% 0.4 % (0-5); Hematocrit 43.7 % (40-54); Hemoglobin 14.9 g/dL (13.0-16.5); Lymphocyte # 1.37 X10^3/ul (0.83-4.51); Lymphocyte % 14.3 % (19-41); Mean Corp Hgb Conc 34.1 g/dL (32-36); Mean Corpuscular Hgb 32.5 pg (27.0-32.0); Mean Corpuscular Volume 95.4 fL (80-94); Mean Platelet Vol. 9.6 fl (6.2-12.0); Monocyte# 0.92 X10^3/uL; Monocyte% 9.6 % (0-10); NRBC Flagged by Analyzer 0 % (0-5); Neutrophil # 7.15 X10^3/uL (2.7-7.7); Neutrophil % 74.6 % (47-70); Platelet Count 288 K/mm3 (150-450); RBC Distribution Width CV 13.2 % (11.6-14.6); RBC Distribution Width SD 46.9 fl (35.1-43.9); Red Blood Count 4.58 M/mm3 (4.6-6.2); White Blood Count 9.6 K/mm3 (4.4-11.0)
[2022-05-25 04:40] LABS: Troponin-I HS 6 pg/mL (3.0-78.0)
[2022-05-25 04:43] LABS: ALB/GLOB Ratio 0.9 RATIO (0.9-2.4); AST(SGOT) 29 U/L (15-37); Alanine Aminotransfer ALT/SGPT 42 U/L (16-61); Albumin, Serum 3.4 g/dL (3.2-5.0); Alkaline Phosphatase 119 U/L (45-117); Anion Gap 8 (5-15); BUN 10 mg/dL (7-18); BUN/Creat Ratio 10.8 RATIO (10-20); Calcium,Total 8.6 mg/dL (8.5-10.1); Chloride 106 mmol/L (98-107); Creatinine, Serum 0.93 mg/dL (0.70-1.30); EST Glomerular Filtration Rate 86 mL/min (>60); Est Glom Filt Rate - Afr Amer 104 mL/min (>60); Estimated Creatinine Clearance 75.59 ml/min; Globulin 3.7 g/dL (2.2-4.2); Glucose 108 mg/dL (74-106); Potassium 3.9 mmol/L (3.5-5.1); Protein, Total 7.1 g/dL (6.4-8.2); Sodium Level 138 mmol/L (136-145)
--- NOTE | 2022-05-25 05:55 | CT_ITS ---
EXAM: CT CHEST WITH INTRAVENOUS CONTRAST CLINICAL INDICATION: Lung mass/nodule, new finding Lung mass/nodule, new finding TECHNIQUE: Helically acquired images were obtained of the chest with intravenous contrast. This CT exam was performed using one or more of the following dose reduction techniques: automated exposure control, adjustment of the mA and/or kV according to patient size, and/or use of iterative reconstruction technique. This report was created using [employer] report generation technology. CONTRAST: IV 100mL [id number] RADIATION DOSE: CTDIvol = 13.86 mGy, DLP = 539.59 mGy-cm COMPARISON: Chest x-ray 05/24/2022. FINDINGS: LUNGS AND PLEURAL SPACES: There are calcified pulmonary granulomas bilaterally. No mass. No pleural effusion or thickening. No pneumothorax. HEART: There is minimal pericardial fluid which is likely to be within physiologic limits. Heart size is normal. No significant coronary artery calcifications. MEDIASTINUM: There are calcified granulomas in the mediastinum. No mediastinal or hilar adenopathy. Esophagus is unremarkable. No hiatal hernia. THYROID: Unremarkable. No thyroid lesions. BONES/JOINTS: There are bridging osteophytes at multiple contiguous levels of the spine, consistent with DISH (diffuse idiopathic skeletal hyperostosis). No suspicious lytic or blastic abnormality. VASCULATURE: Unremarkable. Thoracic aorta is non-dilated. No thoracic aortic dissection. No obvious central pulmonary embolism although this study was not performed with the pulmonary embolism protocol. CT/Chest WITH Contrast IMPRESSION: 1. Calcified pulmonary mediastinal granulomas for which no further evaluation is necessary. 2. No evidence for acute cardiopulmonary pathology. No demonstrated pulmonary masses or noncalcified pulmonary nodules. Electronically Signed: Kody Noyola MD at 6:42 EST Reading Location ID and State: [facility] / [place] , Service support ,
--- NOTE | 2022-05-25 06:55 | NURSING ---
this RN to pt room, unable to obtain orthostatic vital signs at this time, due to pt currently using restroom.
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
[2022-05-25 08:29] LABS: Troponin-I HS 6 pg/mL (3.0-78.0)
[2022-05-25] MEDS: Enoxaparin 40 MG/0.4 ML Syringe SC (09:57)
--- NOTE | 2022-05-25 14:31 | DCINST_ITS ---
Discharge Instructions Diet Discharge Diet: 2000 mg Sodium Diet Activity Discharge Activity: Return to Normal Activity Weight Bearing Status: Weight bearing as tolerated Dressing / Incision Call your doctor if you observe: Fever of 101 or Higher, Coldness, Increased Pain, Numbness or Tingling, Change in Color, Inability to urinate, Inability to have a bowel movement, Shortness of breath, Dizziness, Fainting spells, Swelling in the ankles, Chest pain, Prolonged hiccupping, Increased palpitations (irregular heartbeat) and Calf discomfort Follow Up Care When: IN 2 WEEKS Test Results: Test results from this visit will be discussed in further detail at your follow- up appointment, if applicable. Discharge Plan Admission Admit Date/Time: 05/24/22 22:21 Primary Reason for Your Visit: Sycope Attending Provider: Ivan Montesinos Primary Care Provider: Mary Franklin Consulting Providers: Jenny Granado Discharge Orders/Prescriptions Prescriptions: New atorvastatin 20 mg tablet 20 mg PO QHS Qty: 30 2RF Continued sildenafil 50 mg tablet 50 mg PO DAILY PRN (Reason: sexual activity) Qty: 30 1RF Rx Instructions: administer 30 minutes to 4 hours before activity amlodipine 10 mg tablet 10 mg PO QHS Qty: 90 3RF Rx Instructions: TAKE 1 TABLET BY MOUTH EVERY DAY escitalopram oxalate 10 mg tablet 10 mg PO QHS Qty: 90 3RF Rx Instructions: TAKE 1 TABLET BY MOUTH EVERY DAY Other Ambulatory Orders: Cardiac Holter Monitor, 48 Hrs (Routine) Timeframe: 2 Days Facility: [facility] - Location: Cardiovascular Services Ordered By: Dr. Ivan Montesinos Referrals / Follow Up: Rich Gomez MD [Med Staff - Active Staff] - Within 2 Weeks (for possible cardiac syncope) Mary Franklin MD [Primary Care Provider] - Disposition Disposition (needs filled in before D/C Order can be placed): Home, Self Care
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
== END 2022-05-25 16:01 | disposition home or self-care (01) ==
LOC: ED 21:46 → PCU 22:32
PROVIDERS: Admitting Provider Family Medicine; Emergency Provider Emergency Medicine; PCP Internal Medicine; Visit Provider Internal Medicine
DX: R55 Syncope and collapse (principal); E87.6 Hypokalemia; E87.1 Hypo-osmolality and hyponatremia; S69.92XA Unspecified injury of left wrist, hand and finger(s), initial encounter; E78.5 Hyperlipidemia, unspecified; I10 Essential (primary) hypertension; F41.9 Anxiety disorder, unspecified; F32.A Depression, unspecified; Z79.899 Other long term (current) drug therapy; K21.9 Gastro-esophageal reflux disease without esophagitis; G47.33 Obstructive sleep apnea (adult) (pediatric); R91.1 Solitary pulmonary nodule; F10.10 Alcohol abuse, uncomplicated; V57.5XXA Driver of pick-up truck or van injured in collision with fixed or stationary object in traffic accident, initial encounter; Y93.89 Activity, other specified; Y92.89 Other specified places as the place of occurrence of the external cause
CPT/HCPCS: 99285; 36415; 70450; 71045; 71260; 72125; 73110; 74176; 80048; 80053; 80076; 80307; 82077; 83735; 84100; 84484; 85025; 85610; 85730; 93005; 93306; 93880; 94668; 96360; 96361; 96372; 97161; 97165; 99221; J7030; Q9957; Q9967; A4216; C8929; G0378

== ENCOUNTER → 2022-05-25 | Outpatient (CLI) | payer BC, SELFPAY | END | disposition home or self-care (01) | LOC: PSN 15:37 | PROVIDERS: PCP Internal Medicine; Visit Provider Internal Medicine | DX: Z00.00 Encounter for general adult medical examination without abnormal findings (principal) ==

== ENCOUNTER → 2022-06-14 | Outpatient (CLI) | payer BC, SELFPAY | END | disposition home or self-care (01) | LOC: PSN 11:27 | PROVIDERS: PCP Internal Medicine; Visit Provider Internal Medicine | DX: R55 Syncope and collapse (principal) | CPT/HCPCS: 93225; 93226 ==

== ENCOUNTER → 2022-07-08 | Outpatient (CLI) | payer BC, SELFPAY | END | disposition home or self-care (01) | LOC: SL 13:01 | PROVIDERS: PCP Internal Medicine; Referring Provider Nurse Practitioner Family; Visit Provider Nurse Practitioner Family | DX: G47.10 Hypersomnia, unspecified (principal) | CPT/HCPCS: 95806 ==

== ENCOUNTER → 2022-07-14 | Outpatient (CLI) | payer BC, SELFPAY | END | disposition home or self-care (01) | LOC: CVS 06:31 | PROVIDERS: PCP Internal Medicine; Referring Provider Internal Medicine Cardiovascular Disease; Visit Provider Internal Medicine Cardiovascular Disease | DX: R55 Syncope and collapse (principal); E78.5 Hyperlipidemia, unspecified; I10 Essential (primary) hypertension; I49.1 Atrial premature depolarization; R94.31 Abnormal electrocardiogram [ECG] [EKG] | CPT/HCPCS: 78452; 93017; A9500; A4216 ==

== ENCOUNTER → 2022-07-15 | Outpatient (CLI) | payer BC, SELFPAY ==
[2022-07-15 15:56] LABS: Hematocrit 44.6 % (40-54); Hemoglobin 15.2 g/dL (13.0-16.5); Mean Corp Hgb Conc 34.1 g/dL (32-36); Mean Corpuscular Volume 93.9 fL (80-94); Platelet Count 307 K/mm3 (150-450); RBC Distribution Width CV 12.1 % (11.6-14.6); RBC Distribution Width SD 42.6 fl (35.1-43.9); Red Blood Count 4.75 M/mm3 (4.6-6.2); White Blood Count 9.9 K/mm3 (4.4-11.0)
[2022-07-15 16:41] LABS: Anion Gap 3 (5-15); BUN 21 mg/dL (7-18); BUN/Creat Ratio 19.4 RATIO (10-20); Calcium,Total 9.5 mg/dL (8.5-10.1); Chloride 107 mmol/L (98-107); Creatinine, Serum 1.08 mg/dL (0.70-1.30); EST Glomerular Filtration Rate 73 mL/min (>60); Est Glom Filt Rate - Afr Amer 88 mL/min (>60); Glucose 79 mg/dL (74-106); Potassium 3.9 mmol/L (3.5-5.1); Sodium Level 135 mmol/L (136-145)
== END | disposition home or self-care (01) ==
PROVIDERS: PCP Internal Medicine; Referring Provider Internal Medicine Cardiovascular Disease; Visit Provider Internal Medicine Cardiovascular Disease
DX: R94.31 Abnormal electrocardiogram [ECG] [EKG] (principal); I49.1 Atrial premature depolarization; R55 Syncope and collapse; I10 Essential (primary) hypertension; E78.5 Hyperlipidemia, unspecified
CPT/HCPCS: 36415; 80048; 85027

== ENCOUNTER → 2022-07-20 | Outpatient (CLI) | payer BC, SELFPAY ==
--- NOTE | 2022-07-15 15:34 | STRESSREP_ITS ---
Stress Test Report Date: 07/14/2022 Procedure: Exercise tolerance test/imaging study Indications: Syncope Consent: Per the patient Procedure: The patient exercised on a Ray protocol for 6 minutes and 30 seconds achieving a peak heart rate of 134 bpm (87% predicted maximal heart rate) with a peak blood pressure 150/76 mmHg and a peak MET capacity of 8.5 METs. The baseline ECG demonstrated normal sinus rhythm. The peak exercise ECG demonstrated no ischemic changes. There were no cardiac dysrhythmias pretest, during exercise, or recovery. The functional capacity was considered average. There was no complaint of chest discomfort during exercise or recovery. The examination was discontinued secondary to target heart rate being achieved. The patient was injected with 12.9 mCi of technetium 99m Cardiolite and subsequently rest SPECT Cardiolite nuclear imaging was obtained in the horizontal long, vertical long, and short axis views. Post-exercise, the patient was injected with 40.1 mCi of technetium 99m Cardiolite and subsequently stress SPECT Cardiolite nuclear imaging was obtained in the horizontal long, vertical long, and short axis views. A gated Cardiolite study at peak stress was obtained. Rest and stress SPECT Cardiolite nuclear imaging status post realignment, normalization, and attenuation correction, demonstrates the appearance of relative uniform tracer uptake and myocardial perfusion appearing within normal limits. There is end systolic thickening and brightening. The gated Cardiolite study demonstrates myocardial thickening and inward wall motion. The reported LVEF is 73%. Impression: 1. Technically adequate (percent predicted maximal heart rate greater than 85%) exercise tolerance test 2. Peak exercise ECG with no ischemic changes 3. There were no cardiac dysrhythmias pretest, during exercise, or recovery 4. Rest and stress SPECT Cardiolite nuclear imaging demonstrate no fixed or reversible perfusion defects. 5. The gated Cardiolite study reports an LVEF of 73%. This note was generated with AirPairation software. It may contain incorrect words, spelling, and punctuation that were not noted in checking the note before signing.
--- NOTE | 2022-07-20 12:51 | TILTTABLE_ITS ---
Physician Tilt Table Report Patient's Physicians Primary Care Physician: Mary Franklin Mathematical Engineer: Kaylah Dangelo Indications/Diagnosis: Syncope Procedure Comments: Patient was brought to the noninvasive lab in the postabsorptive nonsedated state. Initial vitals were obtained with a heart rate of 82 bpm and a blood pressure of 122/91 mmHg. Patient was then placed in the 70 degree head upright tilt position and monitored for 20 minutes. Patient main tained adequate blood pressure and heart rate throughout the recording and no symptomatology was noted. The patient was then laid flat and administered 0.4 mg of sublingual nitroglycerin. Immediate heart rate was noted to be 95 bpm and sinus rhythm with a blood pressure 119/87 mmHg. Approximately 5 minutes into the test the patient started developing symptomatology with dizziness lightheadedness blood pressure dropping to 63/50 becoming pale sweaty yawning and then passed out with unrecordable blood pressure. Heart rate was noted to be 82 and then 64 bpm. Patient was then placed flat with improvement in heart rate to 72 bpm and 119/80 mmHg. Postprocedure vitals normalized ending with a heart rate of 86 bpm and a blood pressure of 124/81 mmHg. Patient felt well after that. Summary: Likely vasodepressor and vasovagal syncopal episode post nitroglycerin administration.
== END | disposition home or self-care (01) ==
LOC: CVS 09:26
PROVIDERS: PCP Internal Medicine; Referring Provider Internal Medicine Cardiovascular Disease; Visit Provider Internal Medicine Cardiovascular Disease
DX: R55 Syncope and collapse (principal); I10 Essential (primary) hypertension; E78.5 Hyperlipidemia, unspecified
CPT/HCPCS: 93660; J7040; A4216

== ENCOUNTER → 2022-12-25 | Outpatient (CLI) | payer BC, SELFPAY ==
[2022-12-25 11:09] LABS: Absolute Lymphocyte Count 1.73 X10^3/uL (0.83-4.51); Absolute Neutrophil Count 4.9 X10^3/uL (2.0-7.7); Basophil# 0.09 X10^3/uL; Basophil% 1.2 % (0-1); Eosinophil# 0.18 X10^3/uL; Eosinophils% 2.3 % (0-5); Hematocrit 49.2 % (40-54); Hemoglobin 16.3 g/dL (13.0-16.5); Lymphocyte # 1.73 X10^3/ul (0.83-4.51); Lymphocyte % 22.5 % (19-41); Mean Corp Hgb Conc 33.1 g/dL (32-36); Mean Corpuscular Hgb 31.6 pg (27.0-32.0); Mean Corpuscular Volume 95.3 fL (80-94); Mean Platelet Vol. 10.2 fl (6.2-12.0); Monocyte# 0.76 X10^3/uL; Monocyte% 9.9 % (0-10); NRBC Flagged by Analyzer 0 % (0-5); Neutrophil # 4.88 X10^3/uL (2.7-7.7); Neutrophil % 63.6 % (47-70); Platelet Count 294 K/mm3 (150-450); RBC Distribution Width CV 13.4 % (11.6-14.6); RBC Distribution Width SD 47.5 fl (35.1-43.9); Red Blood Count 5.16 M/mm3 (4.6-6.2); White Blood Count 7.7 K/mm3 (4.4-11.0)
[2022-12-25 11:41] LABS: ALB/GLOB Ratio 0.9 RATIO (0.9-2.4); AST(SGOT) 19 U/L (15-37); Alanine Aminotransfer ALT/SGPT 36 U/L (16-61); Albumin, Serum 3.8 g/dL (3.2-5.0); Alkaline Phosphatase 143 U/L (45-117); Anion Gap 4 (5-15); BUN 17 mg/dL (7-18); BUN/Creat Ratio 14.7 RATIO (10-20); Calcium,Total 9.5 mg/dL (8.5-10.1); Chloride 104 mmol/L (98-107); Cholesterol 179 mg/dL (200); Creatinine, Serum 1.16 mg/dL (0.70-1.30); EST Glomerular Filtration Rate 67 mL/min (>60); Est Glom Filt Rate - Afr Amer 81 mL/min (>60); Globulin 4.1 g/dL (2.2-4.2); Glucose 92 mg/dL (74-106); High Density Lipoprotein 68 mg/dL; PSA,Total - Annual Screen 1.07 ng/mL (0.00-4.00); Potassium 4.9 mmol/L (3.5-5.1); Protein, Total 7.9 g/dL (6.4-8.2); Sodium Level 137 mmol/L (136-145); Triglycerides 83 mg/dL; Very Low Density Lipoprotein 17 mg/dL (5-40)
== END | disposition home or self-care (01) ==
LOC: LAB 10:27
PROVIDERS: PCP Internal Medicine; Visit Provider Internal Medicine
DX: Z00.00 Encounter for general adult medical examination without abnormal findings (principal); I10 Essential (primary) hypertension; N52.9 Male erectile dysfunction, unspecified
CPT/HCPCS: 36415; 80053; 80061; 84153; 85025; G0103

== ENCOUNTER → 2023-11-09 | Outpatient (CLI) | payer BC, SELFPAY ==
[2023-11-09 16:52] LABS: Absolute Lymphocyte Count 1.95 X10^3/uL (0.83-4.51); Absolute Neutrophil Count 4.9 X10^3/uL (2.0-7.7); Basophil# 0.09 X10^3/uL; Basophil% 1.1 % (0-1); Eosinophil# 0.17 X10^3/uL; Eosinophils% 2.2 % (0-5); Hematocrit 45.5 % (40-54); Hemoglobin 15.4 g/dL (13.0-16.5); Lymphocyte # 1.95 X10^3/ul (0.83-4.51); Lymphocyte % 24.7 % (19-41); Mean Corp Hgb Conc 33.8 g/dL (32-36); Mean Corpuscular Hgb 31.2 pg (27.0-32.0); Mean Corpuscular Volume 92.3 fL (80-94); Mean Platelet Vol. 10.6 fl (6.2-12.0); Monocyte# 0.71 X10^3/uL; NRBC Flagged by Analyzer 0 % (0-5); Neutrophil # 4.93 X10^3/uL (2.7-7.7); Neutrophil % 62.6 % (47-70); Platelet Count 275 K/mm3 (150-450); RBC Distribution Width CV 13.1 % (11.6-14.6); RBC Distribution Width SD 44.1 fl (35.1-43.9); Red Blood Count 4.93 M/mm3 (4.6-6.2); White Blood Count 7.9 K/mm3 (4.4-11.0)
[2023-11-09 17:23] LABS: AST(SGOT) 36 U/L (15-37); Alanine Aminotransfer ALT/SGPT 44 U/L (16-61); Albumin, Serum 3.8 g/dL (3.2-5.0); Alkaline Phosphatase 126 U/L (45-117); Anion Gap 5 (5-15); BUN 19 mg/dL (7-18); BUN/Creat Ratio 17.1 RATIO (10-20); Calcium,Total 9.4 mg/dL (8.5-10.1); Chloride 103 mmol/L (98-107); Cholesterol 160 mg/dL (200); Creatinine, Serum 1.11 mg/dL (0.70-1.30); EST Glomerular Filtration Rate 70 mL/min (>60); Est Glom Filt Rate - Afr Amer 85 mL/min (>60); Glucose 92 mg/dL (74-106); High Density Lipoprotein 72 mg/dL; PSA,Total- Diagnostic 1.26 ng/mL (0.0-4.0); Potassium 3.9 mmol/L (3.5-5.1); Protein, Total 7.8 g/dL (6.4-8.2); Sodium Level 134 mmol/L (136-145); Triglycerides 70 mg/dL; Very Low Density Lipoprotein 14 mg/dL (5-40)
== END | disposition home or self-care (01) ==
LOC: BIMLAB 15:34
PROVIDERS: PCP Internal Medicine; Referring Provider Internal Medicine; Visit Provider Internal Medicine
DX: N52.9 Male erectile dysfunction, unspecified (principal); E78.5 Hyperlipidemia, unspecified
CPT/HCPCS: 36415; 80053; 80061; 84153; 85025

== ENCOUNTER → 2024-02-04 | Outpatient (CLI) | payer BC, SELFPAY ==
--- NOTE | 2024-02-04 09:18 | RAD_ITS ---
HISTORY: pain. TECHNIQUE: XR Shoulder Min 2 Views. COMPARISON: None. FINDINGS: BONES : No acute fracture identified. Mineralization unremarkable. JOINTS: No dislocation. Mild degenerative change. SOFT TISSUES: Mild right apical scarring. RAD/Shoulder min 2 Views IMPRESSION: No acute fracture or dislocation identified in the right shoulder. Electronically Signed: Ricarda Gomez MD at 15:07 EST ,
== END | disposition home or self-care (01) ==
PROVIDERS: PCP Internal Medicine; Referring Provider Physician Assistant; Visit Provider Physician Assistant
DX: M67.911 Unspecified disorder of synovium and tendon, right shoulder (principal)
CPT/HCPCS: 73030

== ENCOUNTER → 2024-05-16 | Outpatient (CLI) | payer BC, SELFPAY ==
[2024-05-16 16:55] LABS: Absolute Lymphocyte Count 2.06 X10^3/uL (0.83-4.51); Absolute Neutrophil Count 6.4 X10^3/uL (2.0-7.7); Eosinophil# 0.13 X10^3/uL; Eosinophils% 1.4 % (0-5); Hematocrit 48.3 % (40-54); Hemoglobin 16.2 g/dL (13.0-16.5); Lymphocyte # 2.06 X10^3/ul (0.83-4.51); Lymphocyte % 21.6 % (19-41); Mean Corp Hgb Conc 33.5 g/dL (32-36); Mean Corpuscular Hgb 31.6 pg (27.0-32.0); Mean Corpuscular Volume 94.3 fL (80-94); Mean Platelet Vol. 10.5 fl (6.2-12.0); Monocyte# 0.78 X10^3/uL; Monocyte% 8.2 % (0-10); NRBC Flagged by Analyzer 0 % (0-5); Neutrophil # 6.41 X10^3/uL (2.7-7.7); Neutrophil % 67.2 % (47-70); Platelet Count 304 K/mm3 (150-450); RBC Distribution Width CV 13.2 % (11.6-14.6); RBC Distribution Width SD 46.5 fl (35.1-43.9); Red Blood Count 5.12 M/mm3 (4.6-6.2); White Blood Count 9.5 K/mm3 (4.4-11.0)
[2024-05-16 17:38] LABS: Cholesterol 202 mg/dL (<=200); High Density Lipoprotein 65 mg/dL; Low Density Lipoprotein Calc. 114 mg/dL; PSA,Total - Annual Screen 1.43 ng/mL (0.02-4.00); Triglycerides 114 mg/dL; Very Low Density Lipoprotein 23 mg/dL (5-40)
[2024-05-16 17:39] LABS: ALB/GLOB Ratio 1.3 RATIO (0.9-2.4); AST(SGOT) 38 U/L (<=37); Alanine Aminotransfer ALT/SGPT 63 U/L (<=46); Albumin, Serum 4.1 g/dL (3.4-4.8); Alkaline Phosphatase 126 U/L (40-129); Anion Gap 13 (5-15); BUN 19 mg/dL (4-19); Calcium 9.7 mg/dL (7.6-11.0); Carbon Dioxide 21.8 mmol/L (22.0-29.0); Chloride 102 mmol/L (96-108); Creatinine, Serum 1.2 mg/dL (0.8-1.3); EST Glomerular Filtration Rate 69 (>60); Globulin 3.3 g/dL (2.2-4.2); Glucose 114 mg/dL (70-99); Potassium 3.9 mmol/L (3.3-5.1); Protein, Total 7.4 g/dL (5.9-8.4); Sodium Level 137 mmol/L (133-145); Total Bilirubin 0.25 mg/dL (0.00-1.30)
== END | disposition home or self-care (01) ==
LOC: BIMLAB 15:43
PROVIDERS: PCP Internal Medicine; Referring Provider Internal Medicine; Visit Provider Internal Medicine
DX: I10 Essential (primary) hypertension (principal); Z12.5 Encounter for screening for malignant neoplasm of prostate
CPT/HCPCS: 36415; 80053; 80061; 84153; 85025; G0103